=== PATIENT | female | born 1990 | race Hispanic/Latino ===

== ENCOUNTER 2018-05-26 09:00 | Inpatient (IN) | payer OTHER ==
[2018-05-26] MEDS ORDERED: SUBLIMAZE IV PRN (10:30)
[2018-05-26] MEDS ORDERED: XYLOCAINE 2% INFILTRATI NR (10:30)
--- NOTE | 2018-05-26 10:35 | History and Physical Report ---
History of Present Illness Date of examination: 05/26/18 Date of admission: 05/26/18 09:00 Chief complaint: Scheduled for induction of labor History of present illness: Pt is 28 year old female JILLIAN 05/19/18 at 41w0d who presents for induction of labor. She reports irregular contractions, and denies vaginal bleeding and leakage of fluid. She has had limited care at [facility] since 32 wks complicated by third trimester entry to care, Hepatitis C, H/o oxycodone use, genital herpes without lesion or prodrome, trichomonas treated on April 14, 2018. She is GBS positive- Clindamycin resistant. 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 History: herpes, trichomonas (treated 04/14/18 ) Family/Genetic History: hypertension Social history: smoking, IV drug use (former ), other (h/o oxycodone dependence ) - Obstetrical History Expected Date of Delivery: 05/19/18 Actual Gestation: 41 Week(s) 0 Day(s) : 6 Para: 3 Hx # Term Pregnancies: 3 Number of Pregnancies: 0 Spontaneous Abortions: 0 Induced : 2 Number of Living Children: 3 Medications and Allergies Allergies Allergy/AdvReac Type Severity Reaction Status Date / Time Penicillins Allergy Unknown Verified 07/10/14 11:45 doxycycline AdvReac Vomiting Verified 07/10/14 11:45 ketorolac tromethamine AdvReac Vomiting Verified 07/10/14 11:45 [From Toradol] tramadol AdvReac Vomiting Verified 07/10/14 11:45 Home Medications Medication Instructions Recorded Confirmed Last Taken Type Acetaminophen/Codeine 1 tab PO Q6H PRN #15 tab 07/10/14 Unknown Rx [Acetaminophen-Codeine #3 TAB] Clindamycin [Clindamycin CAP] 300 mg PO Q8H #30 cap 07/10/14 Unknown Rx Active Meds: Active Medications Butorphanol Tartrate (Stadol) 2 mg IV Q2H PRN PRN Reason: Pain , Severe (7-10) Ephedrine Sulfate (Ephedrine Sulfate) 10 mg IV Q2M PRN PRN Reason: Hypotension Fentanyl (Sublimaze) 100 mcg IV Q2H PRN PRN Reason: Labor Pain Lactated Ringer's (Lactated Ringers) 1,000 mls @ 125 mls/hr IV DIRECT ИРИНА Oxytocin/Sodium Chloride (Pitocin/Ns 20 Unit/1000ml Drip) 20 units in 1,000 mls @ 125 mls/hr IV DIRECT ИРИНА Oxytocin/Sodium Chloride (Pitocin/Ns 30 Unit/500ml) 30 units in 500 mls @ 4 mls /hr IV TITR ИРИНА; Protocol Vancomycin HCl (Vancomycin/Ns 1 Gm/250 Ml) 1 gm in 250 mls @ 167.007 mls/hr IV Q12H ИРИНА; Protocol Lidocaine (Xylocaine 2%) 20 ml INFILTRATI ONCE ONE Stop: 05/26/18 10:15 Mineral Oil (Mineral Oil) 30 ml PO QHS PRN PRN Reason: Constipation Naloxone HCl (Narcan 0.4 Mg/1 Ml) 0.1 mg IV Q2MIN PRN PRN Reason: Res Rate </= 8 or 02 SAT < 92% Ondansetron HCl (Zofran) 4 mg IV Q8H PRN PRN Reason: Nausea And Vomiting Terbutaline Sulfate (Brethine) 0.25 mg SUB-Q ONCE PRN PRN Reason: Hyperstimulation/Hypertonicity Terbutaline Sulfate (Brethine) 0.25 mg IVP ONCE PRN PRN Reason: Hyperstimulation/Hypertonicity - Vital Signs Vital signs: Vital Signs Pulse BP 90 135/82 05/26/18 09:41 05/26/18 09:41 Temp Pulse Resp BP Pulse Ox 98.1 F 90 16 135/82 05/26/18 10:16 05/26/18 09:41 05/26/18 10:16 05/26/18 09:41 - Physical Exam Abdomen: Positive: soft (gravid ) Genitourinary (Female): Positive: normal external genitalia Uterus: Positive: enlarged (gravid ) Extremities: Positive: normal - Obstetrical FHR: auscultation normal Uterine Contraction Monitor Mode: External Cervical Dilatation: 2 Cervical Effacement Percentage: 50 station: -2 Uterine Contraction Pattern: Irregular Uterine Tone Measurement Phase: Resting Uterine Contraction Intensity: Mild Results All other labs normal. Assessment and Plan A: IUP at 41w0d Hepatitis C Genital Herpes without lesion or prodrome Limited care (three visits) Degenerative Disc Disease H/o narcotic dependence GBS positive, Penicillin allergy, resistant to Clindamycin P: Admit to labor and delivery Pitocin induction Vancomycin 1g q 12 hrs for GBS prophylaxis
[2018-05-26] MEDS ORDERED: VANCOMYCIN/NS 1 GM/250 ML 1 GM/250 ML BAG IV SCH (11:00)
[2018-05-26] MEDS ORDERED: LACTATED RINGERS 1,000 ML IV SCH (11:00)
[2018-05-26] MEDS ORDERED: PITOCin/NS 30 UNIT/500ML 30 UNITS/500 ML BAG IV SCH (11:00)
[2018-05-26] MEDS ORDERED: STADOL IV PRN (11:00)
[2018-05-26] MEDS ORDERED: PITOCin/NS 20 UNIT/1000ML DRIP 20 UNITS/1,000 ML BAG IV SCH ×2 (11:00→22:00)
[2018-05-26] MEDS ORDERED: BRETHINE SUB-Q PRN (11:00)
[2018-05-26] MEDS ORDERED: ZOFRAN IV PRN ×2 (11:00→21:11)
[2018-05-26] MEDS ORDERED: NARCAN 0.4 MG/1 ML IV PRN (11:00)
[2018-05-26] MEDS ORDERED: BRETHINE IVP PRN (11:00)
[2018-05-26] MEDS ORDERED: MINERAL OIL PO PRN (11:00)
[2018-05-26 12:37] LABS: Hematocrit 32.1 % (30.3-42.9); Hemoglobin 11.5 gm/dl (10.1-14.3); Mean Corpuscular HGB Conc 36 % (30-34); Mean Corpuscular Hemoglobin 30 pg (28-32); Mean Corpuscular Volume 85 fl (79-97); Platelet Count 284 K/mm3 (140-440); Red Blood Count 3.78 M/mm3 (3.65-5.03); Red Cell Distribution Width 14.2 % (13.2-15.2)
[2018-05-26] MEDS ORDERED: NARCAN 2 MG/2 ML IV PRN (14:42)
--- NOTE | 2018-05-26 14:42 | Anesthesia Consultation ---
Anesthesia Consult and Med Hx Date of service: 05/26/18 - Airway Anesthetic Teeth Evaluation: Good ROM Head & Neck: Adequate Mental/Hyoid Distance: Adequate Mallampati Class: Class II Intubation Access Assessment: Probably Good - Pre-Operative Health Status ASA Pre-Surgery Classification: ASA2 Proposed Anesthetic Plan: Epidural, Spinal - Pulmonary Hx Smoking: Yes Hx Asthma: No COPD: No Hx Pneumonia: No - Cardiovascular System Hx Hypertension: Yes - Central Nervous System Hx Seizures: No Hx Psychiatric Problems: Yes (depression) - Endocrine Hx Renal Disease: No Hx End Stage Renal Disease: No Hx Hypothyroidism: No Hx Hyperthyroidism: No - Hematic Hx Anemia: No Hx Sickle Cell Disease: No - Other Systems Hx Alcohol Use: No
[2018-05-26] MEDS ORDERED: fentaNYL-BUPIV 2 MCG/ML-0.125% 200 MCG/100 ML BAG EPIDURAL SCH (15:00)
[2018-05-26] MEDS ORDERED: XYLOCAINE MPF 2% ONE (20:39)
[2018-05-26] MEDS ORDERED: CYTOTEC ONE (20:53)
[2018-05-26] MEDS ORDERED: TORADOL IV PRN (21:11)
[2018-05-26] MEDS ORDERED: PHENERGAN PR PRN (21:11)
[2018-05-26] MEDS ORDERED: NORCO 5/325 PO PRN (21:11)
[2018-05-26] MEDS ORDERED: LANSINOH TP PRN (21:11)
[2018-05-26] MEDS ORDERED: MILK OF MAGNESIA PO PRN (21:11)
[2018-05-26] MEDS ORDERED: DULCOLAX PR PRN (21:11)
[2018-05-26] MEDS ORDERED: TUCKS PAD TP PRN (21:11)
[2018-05-26] MEDS ORDERED: BENADRYL PO PRN (21:11)
[2018-05-26] MEDS ORDERED: TYLENOL PO PRN (21:11)
[2018-05-26] MEDS ORDERED: PHENERGAN PO PRN (21:11)
--- NOTE | 2018-05-26 21:25 | Procedure Note ---
OB Delivery Note - Delivery Date of Delivery: 05/26/18 Surgeon: BHUMIKA DELGADILLO Estimated blood loss: other (350cc) - Vaginal Delivery presentation: vertex Delivery position: OA Intrapartum events: meconium Delivery induction: cervidil Delivery monitor: external FHT, external uterine Route of delivery: Delivery placenta: spontaneous Delivery cord: nuchal cord, 2 umbilical vessels Episiotomy: none Delivery laceration: other (periurethral on the right ) Delivery repair: vicryl Delivery comments: Patient was noted to be c/c/ +1 and commenced to pushing a viable male infant at 2047. The baby head delivered and nuchal cord was reduced and shoulders easily delivered. The cord was clamped and cut and placed on mom chest at 2053. Awaiting Peds in room and given to Peds for evaluation. The Apgars 8 and 8 with a weight 3495=7 pounds 11oz. EBL 350cc. Periurethral lac repaired with 2-0 vicryl. Excellent hemostasis. Patient and baby bonding - Infant A at 1 minute: 8 at 5 minutes: 8 Infant Gender: Male
[2018-05-26] MEDS ORDERED: MOTRIN PO SCH (22:00)
[2018-05-26] MEDS ORDERED: SODIUM CHLORIDE FLUSH SYRINGE 10 ML IV NR (22:00)
[2018-05-27] MEDS: PERCOCET 5/325 PO PRN ×4 (03:41→21:15)
--- NOTE | 2018-05-27 08:56 | Progress Note ---
Assessment and Plan A: Stable PP Day 1 Drug Abuse P: D/c home per pts request Subjective - Subjective Date of service: 05/27/18 Patient reports: appetite normal, voiding normally, pain well controlled, ambulating normally, other (c/o back pain and afterbirth pain) [place]: doing well Objective - Vital Signs Latest vital signs: Vital Signs Temp Pulse Resp BP BP Pulse Ox 05/27/18 03:40 98.9 F 78 18 131/80 05/26/18 22:33 98.6 F 81 20 129/72 97 05/26/18 22:15 98.1 F 16 05/26/18 21:57 69 136/69 05/26/18 21:42 78 108/71 05/26/18 21:27 78 131/77 05/26/18 21:12 100 H 124/70 05/26/18 20:44 87 150/91 05/26/18 20:34 104 H 130/100 05/26/18 19:57 90 138/90 05/26/18 19:41 87 127/69 05/26/18 19:27 64 122/62 05/26/18 19:15 97.8 F 18 05/26/18 19:12 66 121/57 05/26/18 18:57 76 121/56 05/26/18 18:41 83 127/71 05/26/18 18:30 98.1 F 05/26/18 18:28 94 H 127/73 05/26/18 18:11 102 H 124/73 05/26/18 17:57 82 132/80 05/26/18 17:43 69 115/58 05/26/18 17:27 88 115/58 05/26/18 17:13 109 H 128/77 05/26/18 16:58 97 H 142/81 05/26/18 16:42 96 H 142/80 05/26/18 16:27 75 124/69 05/26/18 16:13 70 124/74 05/26/18 16:00 98.5 F 05/26/18 15:57 69 127/76 05/26/18 15:48 85 97 05/26/18 15:42 74 97 05/26/18 15:41 80 136/79 05/26/18 15:38 72 99 05/26/18 15:32 69 100 05/26/18 15:28 92 H 99 05/26/18 15:26 82 133/71 05/26/18 15:23 71 100 05/26/18 15:18 69 99 05/26/18 15:13 71 131/68 98 05/26/18 15:08 77 98 05/26/18 15:03 87 97 05/26/18 15:02 82 137/63 05/26/18 15:01 69 83 L 05/26/18 14:58 91 H 97 05/26/18 14:57 83 133/84 05/26/18 14:55 92 H 92 05/26/18 14:53 83 97 05/26/18 14:52 83 132/81 05/26/18 14:48 91 H 98 05/26/18 14:43 96 05/26/18 13:00 98.4 F 05/26/18 11:24 90 116/65 05/26/18 11:00 98.4 F 05/26/18 10:16 98.1 F 16 05/26/18 09:41 90 135/82 Intake and Output 05/26/18 05/27/18 05/27/18 22:59 06:59 14:59 Output Total 1000 800 Balance -1000 -800 Output: Urine 1000 800 Indwelling Catheter 1000 Void 800 Other: Total, Output Amount 1000 600 # Voids Void 1 Estimated Blood Loss 350 - Exam Breasts: Present: deferred Abdomen: Present: normal appearance, soft. Absent: distention, tenderness Uterus: Present: normal, firm, fundal height below umbilicus Extremities: Present: normal - Labs Labs: Abnormal lab results 05/26/18 Range/Units 11:39 MCHC 36 H (30-34) %
--- NOTE | 2018-05-27 09:01 | Discharge Summary ---
Providers - Providers Date of Admission: 05/26/18 09:00 Date of discharge: 05/27/18 Attending physician: BHUMIKA DELGADILLO MD Primary care physician: BHUMIKA DELGADILLO MD Hospitalization Reason for admission: induction of labor, IUP at term Delivery: Episiotomy: none Laceration: none Other procedures: none complications: none Discharge diagnosis: IUP at term delivered baby: male Condition at discharge: Good Disposition: DC-01 TO HOME OR SELFCARE Plan - Discharge Medications Prescriptions: Ferrous Sulfate 325 mg PO BID #60 tablet. Ibuprofen [Motrin] 600 mg PO Q8H PRN #30 tablet PRN Reason: Pain oxyCODONE /ACETAMINOPHEN [Percocet 5/325] 1 tab PO Q6HR PRN #30 tablet PRN Reason: Pain - Provider Discharge Summary Activity: routine, no sex for 6 weeks, no heavy lifting 4 weeks, no strenuous exercise Diet: routine Instructions: routine Additional instructions: [] Smoking cessation referral if applicable(refer to patient education folder for contact #) [] Refer to [facility] Booklet Call your doctor immediately for: * Fever > 100.5 * Heavy vaginal bleeding ( >1 pad per hour) * Severe persistent headache * Shortness of breath * Reddened, hot, painful area to leg or breast * Drainage or odor from incision. * Keep incision clean and dry at all times and follow doctor's instructions regarding bathing/showering - Follow up plan Follow up: BHUMIKA DELGADILLO MD [Primary Care Provider] - (Call office to schedule infant circumcision)
[2018-05-27] MEDS ORDERED: PRENATAL VITAMIN PO SCH (10:00)
[2018-05-27] MEDS: COLACE PO SCH ×2 (10:00→21:15)
[2018-05-27 10:11] LABS: Hematocrit 31.7 % (30.3-42.9); Hemoglobin 10.7 gm/dl (10.1-14.3)
[2018-05-27] MEDS ORDERED: M-M-R II VACCINE SUB-Q ONE (21:11)
[2018-05-27] MEDS ORDERED: BOOSTRIX IM ONE (21:11)
[2018-05-28] MEDS: PERCOCET 5/325 PO PRN (04:29)
[2018-05-28 09:28] VITALS: BP 119/72
== END 2018-05-28 10:15 | disposition home or self-care (01) | DRG 775 ==
LOC: LD 09:00 → OB 22:59
PROVIDERS: ADMIT Obstetrics & Gynecology; ATTEND Obstetrics & Gynecology
PROC: 10E0XZZ Delivery of Products of Conception, External Approach (ICD-10-PCS; principal; 2018-05-26)
PROC: 0UQMXZZ Repair Vulva, External Approach (ICD-10-PCS; 2018-05-26)
PROC: 3E0P7VZ Introduction of Hormone into Female Reproductive, Via Natural or Artificial Opening (ICD-10-PCS; 2018-05-26)
DX: O99.824 Streptococcus B carrier state complicating childbirth (principal); O77.0 Labor and delivery complicated by meconium in amniotic fluid; O99.324 Drug use complicating childbirth; O71.82 Other specified trauma to perineum and vulva; O69.81X0 Labor and delivery complicated by cord around neck, without compression, not applicable or unspecified; Z3A.41 41 weeks gestation of pregnancy; Z37.0 Single live birth
CPT/HCPCS: 36415; 85014; 85018; 85027; 86592; 86850; 86900; 86901; J0595; J2590; J3010; J3370; J7120

== ENCOUNTER 2019-03-11 16:49 | Outpatient (CLI) | payer OTHER ==
[2019-03-11 17:27] VITALS: BP 114/57
[2019-03-11 17:58] LABS: Bilirubin,Urine NEG (Negative); Blood,Urine NEG (Negative); Color,Urine Yellow (Yellow)
[2019-03-11] MEDS ORDERED: LACTATED RINGERS 500 ML IV ONE (18:27)
== END 2019-03-11 19:19 | disposition home or self-care (01) ==
LOC: TRG 16:49
PROVIDERS: ATTEND Obstetrics & Gynecology
DX: O47.02 False labor before 37 completed weeks of gestation, second trimester (principal); Z3A.20 20 weeks gestation of pregnancy
CPT/HCPCS: 81001; 87086

== ENCOUNTER 2019-03-14 13:47 | Inpatient (IN) | payer OTHER ==
[2019-03-14] MEDS ORDERED: LACTATED RINGERS 1,000 ML ONE (14:19)
[2019-03-14] MEDS ORDERED: ZOFRAN IV PRN (14:37)
[2019-03-14] MEDS ORDERED: COLACE PO PRN (14:37)
--- NOTE | 2019-03-14 14:45 | History and Physical Report ---
History of Present Illness Date of examination: 03/14/19 Chief complaint: fever, skin lesions, sent from clinic History of present illness: Pt is a 28 year old female JILLIAN 07/26/19 at 20w6d who presents from the office with body aches, subjective fever, and ulcerated lesions on arms and legs. She denies obstetric complaints. She reports being in her usual state of health until about 1 week ago when she began to feel ill with acceleration of her symptoms over the last three days. She was recently treated for a UTI. She has had care at [facility] since 11 wks complicated by hepatitis C, genital herpes, trichomonas (with pt non-compliance with medic ation), illicit drug abuse evidenced by positive drug screen, chronic opioid use secondary to chronic back pain, tobacco use and GBS positive status. 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: hepatitis C, herpes, trichomonas (non-compliant with treatment ) Family/Genetic History: hypertension Social history: smoking, other (Child at 6 wks due to SIDS in 2018; illicit drug use ) - Obstetrical History Expected Date of Delivery: 07/26/19 Actual Gestation: 21 Week(s) 0 Day(s) : 7 Para: 4 Hx # Term Pregnancies: 4 Number of Pregnancies: 0 Spontaneous Abortions: 0 Induced : 2 Number of Living Children: 3 (one child of SIDS at 6 wks old) Medications and Allergies Allergies Allergy/AdvReac Type Severity Reaction Status Date / Time Penicillins Allergy Unknown Verified 07/10/14 11:45 doxycycline AdvReac Vomiting Verified 07/10/14 11:45 ketorolac tromethamine AdvReac Vomiting Verified 07/10/14 11:45 [From Toradol] tramadol AdvReac Vomiting Verified 07/10/14 11:45 Home Medications Medication Instructions Recorded Confirmed Last Taken Type Acetaminophen/Codeine 1 tab PO Q6H PRN #15 tab 07/10/14 Unknown Rx [Acetaminophen-Codeine #3 TAB] Clindamycin [Clindamycin CAP] 300 mg PO Q8H #30 cap 07/10/14 Unknown Rx Ferrous Sulfate 325 mg PO BID #60 tablet. 05/26/18 Unknown Rx Ibuprofen [Motrin] 600 mg PO Q8H PRN #30 tablet 05/26/18 Unknown Rx oxyCODONE /ACETAMINOPHEN [Percocet 1 tab PO Q6HR PRN #30 tablet 05/26/18 Unknown Rx 5/325] Nitrofurantoin [place]/M-Cryst 100 mg PO BID #14 capsule 03/11/19 Unknown Rx [Macrobid CAP] Active Meds: Active Medications Acetaminophen (Tylenol) 650 mg PO Q4H PRN PRN Reason: Pain MILD(1-3)/Fever >100.5/QUEEN Docusate Sodium (Colace) 100 mg PO Q12H PRN PRN Reason: Constipation Lactated Ringer's (Lactated Ringers) 1,000 mls @ 150 mls/hr IV DIRECT ИРИНА Lactated Ringer's (Lactated Ringers) 500 mls @ 999 mls/hr IV BOLUS ONE Stop: 03/14/19 15:38 Lactated Ringer's (Lactated Ringers) 1,000 mls @ 150 mls/hr IV DIRECT ИРИНА Clindamycin HCl (Cleocin 900 Mg/50 Ml) 900 mg in 50 mls @ 100 mls/hr IV Q8HR ИРИНА; Protocol Multivitamins/Iron/Calcium ( Vitamin) 1 each PO QDAY ИРИНА Ondansetron HCl (Zofran) 4 mg IV Q6H PRN PRN Reason: Nausea And Vomiting Review of Systems All systems: negative Constitutional: fatigue, weakness, other (body aches ) - Vital Signs Vital signs: Vital Signs Pulse Pulse Ox 132 H 100 03/14/19 13:53 03/14/19 13:53 Temp Pulse Resp BP Pulse Ox 102.7 F H 131 H 36 H 121/67 94 03/14/19 14:10 03/14/19 14:43 03/14/19 14:10 03/14/19 14:10 03/14/19 14:43 - Physical Exam Breasts: Positive: deferred Cardiovascular: Regular rate (tachycardic ) Lungs: Positive: Clear to auscultation Abdomen: Positive: soft (gravid ) Genitourinary (Female): Positive: normal external genitalia Uterus: Positive: enlarged (gravid ) Extremities: Positive: other (ulcerated, erythematous eruption on arms and legs ) - Obstetrical FHR: auscultation normal Uterine Contraction Monitor Mode: External Uterine Contraction Pattern: Absent Uterine Tone Measurement Phase: Resting Results Result Diagrams: 03/14/19 16:16 03/14/19 16:16 All other labs normal. Assessment and Plan A: IUP at 20w6d Febrile morbidity with body aches and ulcerated eruption on arms and legs Recent UTI diagnosis Hepatitis C Trichomonas with non-compliance with prescribed Flagyl Illicit drug use Chronic opioid use Tobacco use Degenerative Disc Disease Genital Herpes GBS positive P: Admit to antepartum service CBC, CMP, Urine drug screen, Urinalysis Infectious Disease Consult FHTs by doppler q shift Begin broad spectrum antibiotics per ID recommendations Closely monitor clinical status
[2019-03-14] MEDS ORDERED: CLEOCIN 900 MG/50 mL 900 MG/50 ML BAG IV SCH (15:00)
[2019-03-14] MEDS ORDERED: LACTATED RINGERS 1,000 ML IV SCH (15:00)
[2019-03-14] MEDS ORDERED: LACTATED RINGERS 500 ML IV ONE (15:08)
[2019-03-14] MEDS: TYLENOL PO PRN (16:17)
[2019-03-14 16:37] LABS: Hematocrit 26.4 % (30.3-42.9); Hemoglobin 9.3 gm/dl (10.1-14.3); Mean Corpuscular HGB Conc 35 % (30-34); Mean Corpuscular Volume 94 fl (79-97); Red Blood Count 2.82 M/mm3 (3.65-5.03); Red Cell Distribution Width 14.6 % (13.2-15.2)
[2019-03-14 17:04] LABS: Alanine Aminotransferase 13 units/L (7-56); Albumin 1.9 g/dL (3.9-5); BUN/Creatinine Ratio 11; Blood Urea Nitrogen 8 mg/dL (7-17); Calcium 7.7 mg/dL (8.4-10.2); Hemolysis Index 79
[2019-03-14 17:06] LABS: Platelet Count 127 K/mm3 (140-440)
[2019-03-14] MEDS: LACTATED RINGERS 1,000 ML IV SCH (17:46)
[2019-03-14] MEDS: AZACTAM/NS 1 GM/50 ML 1 GM/50 ML VIAL IV SCH (18:20)
[2019-03-14 18:32] LABS: Band Neutrophils # (Manual) 3.4 K/mm3; Basophils % (Manual) 0 % (0.0-1.8); Eosinophils % (Manual) 0 % (0.0-4.3); Total Cells Counted 100
[2019-03-14 18:37] LABS: Anisocytosis 1+; Hypochromasia 1+; Ovalocytes Few
[2019-03-14 18:38] LABS: Platelet Estimate Consistent w Auto; Poikilocytosis Few
[2019-03-14 19:10] LABS: Bacteria,Urine 1+ /HPF (Negative); Bilirubin,Urine NEG (Negative); Blood,Urine SM (Negative); Color,Urine Yellow (Yellow); Urobilinogen,Urine < 2.0 mg/dL (<2.0)
[2019-03-14 19:12] LABS: Benzodiazepines Screen,Urine PRESUMPTIVE NEGATIVE; Cannabinoid Screen,Urine PRESUMPTIVE NEGATIVE; Cocaine Screen,Urine PRESUMPTIVE NEGATIVE; Methadone Screen,Urine PRESUMPTIVE NEGATIVE; Opiate Screen,Urine PRESUMPTIVE NEGATIVE
[2019-03-14] MEDS: VANCOMYCIN/NS 1 GM/250 ML 1 GM/250 ML BAG IV SCH (19:18)
[2019-03-14] MEDS: ROXICODONE PO PRN (19:20)
[2019-03-14 19:27] LABS: Amphetamine Screen,Urine PRESUMPTIVE POSITIVE
[2019-03-15] MEDS: ROXICODONE PO PRN ×4 (03:20→22:53)
[2019-03-15] MEDS: VANCOMYCIN/NS 1 GM/250 ML 1 GM/250 ML BAG IV SCH ×3 (03:26→22:32)
[2019-03-15] MEDS: AZACTAM/NS 1 GM/50 ML 1 GM/50 ML VIAL IV SCH ×3 (03:41→21:39)
[2019-03-15] MEDS: LACTATED RINGERS 1,000 ML IV SCH ×2 (03:42→17:13)
--- NOTE | 2019-03-15 07:59 | Progress Note ---
Assessment and Plan A: IUP at 21w0d Febrile morbidity with body aches and ulcerated eruption on arms and legs Recent UTI diagnosis Hepatitis C Trichomonas with non-compliance with prescribed Flagyl Illicit drug use Chronic opioid use Tobacco use Degenerative Disc Disease Genital Herpes GBS positive P: Consider transfer off of Labor and Delivery unit given unknown etiology of skin eruption Internal Medicine consult Subjective - Subjective Date of service: 03/15/19 Principal diagnosis: IUP at 21wks, febrile morbidity, Hepatitis, Rash Interval history: Pt with no change in her complaints since yesterday. Continuing to complain of pain of head, ribs, arms, back and legs. Denies obstetric complaints. Patient reports: new complaints (per HPI ) Objective - Vital Signs Vital Signs: Vital Signs - 12hr 03/14/19 03/14/19 03/14/19 20:20 20:39 22:13 Pulse Rate 121 H 122 H Respiratory 18 Rate Blood Pressure 106/50 106/56 03/14/19 03/14/19 03/15/19 22:40 23:39 00:39 Pulse Rate 120 H 118 H 123 H Respiratory Rate Blood Pressure 96/47 120/63 111/54 03/15/19 03/15/19 03/15/19 01:39 02:40 03:20 Pulse Rate 121 H 123 H Respiratory 19 Rate Blood Pressure 114/53 119/56 03/15/19 03/15/19 03/15/19 04:39 05:40 06:39 Pulse Rate 129 H 117 H 118 H Respiratory Rate Blood Pressure 119/56 98/50 108/52 03/15/19 07:39 Pulse Rate 122 H Respiratory Rate Blood Pressure 108/54 - Exam Breasts: deferred Cardiovascular: Regular rate (tachuycardic ) Lungs: Clear to auscultation Abdomen: Present: soft (gravid ) Uterus: Present: normal (gravid ) FHR: auscultation normal Uterine Contraction Pattern: Absent - Labs Labs: Abnormal Labs 03/14/19 03/14/19 03/14/19 16:16 16:16 18:40 RBC 2.82 L Hgb 9.3 L Hct 26.4 L MCH 33 H MCHC 35 H Plt Count 127 L Lymphocytes % (Manual) 3.0 L Lymphocytes # (Manual) 0.3 L Sodium 128 L Chloride 95.6 L Carbon Dioxide 18 L Calcium 7.7 L Total Protein 5.0 L Albumin 1.9 L Urine WBC (Auto) 24.0 H Laboratory Results - last 24 hr 03/14/19 03/14/19 03/14/19 16:16 16:16 16:16 WBC 9.7 RBC 2.82 L Hgb 9.3 L Hct 26.4 L MCV 94 MCH 33 H MCHC 35 H RDW 14.6 Plt Count 127 L Add Manual Diff Complete Total Counted 100 Seg Neutrophils % Dials Supervisor Seg Neuts % (Manual) 59.0 Band Neutrophils % 35.0 Lymphocytes % (Manual) 3.0 L Reactive Lymphs % (Man) 0 Monocytes % (Manual) 3.0 Eosinophils % (Manual) 0 Basophils % (Manual) 0 Metamyelocytes % 0 Myelocytes % 0 Promyelocytes % 0 Blast Cells % 0 Nucleated RBC % Not Reportable Seg Neutrophils # Man 5.7 Band Neutrophils # 3.4 Lymphocytes # (Manual) 0.3 L Abs React Lymphs (Man) 0.0 Monocytes # (Manual) 0.3 Eosinophils # (Manual) 0.0 Basophils # (Manual) 0.0 Metamyelocytes # 0.0 Myelocytes # 0.0 Promyelocytes # 0.0 Blast Cells # 0.0 WBC Morphology Not Reportable Hypersegmented Neuts Not Reportable Hyposegmented Neuts Not Reportable Hypogranular Neuts Not Reportable Smudge Cells Not Reportable Toxic Granulation Not Reportable Toxic Vacuolation Not Reportable Dohle Bodies Not Reportable Pelger-Huet Anomaly Not Reportable Waylon Rods Not Reportable Platelet Estimate Consistent w auto Clumped Platelets Not Reportable Plt Clumps, EDTA Not Reportable Large Platelets Not Reportable Giant Platelets Not Reportable Platelet Satelliting Not Reportable Plt Morphology Comment Not Reportable RBC Morphology Not Reportable Dimorphic RBCs Not Reportable Polychromasia Not Reportable Hypochromasia 1+ Poikilocytosis Few Anisocytosis 1+ Microcytosis Not Reportable Macrocytosis Not Reportable Spherocytes Not Reportable Pappenheimer Bodies Not Reportable Sickle Cells Not Reportable Target Cells Not Reportable Tear Drop Cells Not Reportable Ovalocytes Few Helmet Cells Not Reportable [place] Bodies Not Reportable Cool Rings Not Reportable Spiro Cells Not Reportable Bite Cells Not Reportable Crenated Cell Not Reportable Elliptocytes Not Reportable Acanthocytes (Spur) Not Reportable Rouleaux Not Reportable Hemoglobin C Crystals Not Reportable Schistocytes Not Reportable Malaria parasites Not Reportable Robert Bodies Not Reportable Hem Pathologist Commnt No Sodium Potassium Chloride Carbon Dioxide Anion Gap BUN Creatinine Estimated GFR BUN/Creatinine Ratio Glucose Calcium Total Bilirubin AST ALT Alkaline Phosphatase Total Protein Albumin Albumin/Globulin Ratio Urine Color Urine Turbidity Urine pH Ur Specific [place] Urine Protein Urine Glucose (UA) Urine Ketones Urine Blood Urine Nitrite Urine Bilirubin Urine Urobilinogen Ur Leukocyte Esterase Urine WBC (Auto) Urine RBC (Auto) U Epithel Cells (Auto) Urine Bacteria (Auto) Urine Yeast (Budding) Urine Opiates Screen Urine Methadone Screen Ur Barbiturates Screen Ur Phencyclidine Scrn Ur Amphetamines Screen U Benzodiazepines Scrn Urine Cocaine Screen U Marijuana (THC) Screen Drugs of Abuse Note HIV 1&2 Antibody Rapid Non react HIV P24 Antigen Non react Blood Type A POSITIVE Antibody Screen Negative 03/14/19 03/14/19 03/14/19 16:16 18:40 18:40 WBC RBC Hgb Hct MCV MCH MCHC RDW Plt Count Add Manual Diff Total Counted Seg Neutrophils % Seg Neuts % (Manual) Band Neutrophils % Lymphocytes % (Manual) Reactive Lymphs % (Man) Monocytes % (Manual) Eosinophils % (Manual) Basophils % (Manual) Metamyelocytes % Myelocytes % Promyelocytes % Blast Cells % Nucleated RBC % Seg Neutrophils # Man Band Neutrophils # Lymphocytes # (Manual) Abs React Lymphs (Man) Monocytes # (Manual) Eosinophils # (Manual) Basophils # (Manual) Metamyelocytes # Myelocytes # Promyelocytes # Blast Cells # WBC Morphology Hypersegmented Neuts Hyposegmented Neuts Hypogranular Neuts Smudge Cells Toxic Granulation Toxic Vacuolation Dohle Bodies Pelger-Huet Anomaly Waylon Rods Platelet Estimate Clumped Platelets Plt Clumps, EDTA Large Platelets Giant Platelets Platelet Satelliting Plt Morphology Comment RBC Morphology Dimorphic RBCs Polychromasia Hypochromasia Poikilocytosis Anisocytosis Microcytosis Macrocytosis Spherocytes Pappenheimer Bodies Sickle Cells Target Cells Tear Drop Cells Ovalocytes Helmet Cells [place] Bodies Cool Rings Irvin Cells Bite Cells Crenated Cell Elliptocytes Acanthocytes (Spur) Rouleaux Hemoglobin C Crystals Schistocytes Malaria parasites Robert Bodies Hem Pathologist Commnt Sodium 128 L Potassium 4.0 Chloride 95.6 L Carbon Dioxide 18 L Anion Gap 18 BUN 8 Creatinine 0.7 Estimated GFR > 60 BUN/Creatinine Ratio 11 Glucose 88 Calcium 7.7 L Total Bilirubin 0.20 AST 22 ALT 13 Alkaline Phosphatase 83 Total Protein 5.0 L Albumin 1.9 L Albumin/Globulin Ratio 0.6 Urine Color Yellow Urine Turbidity Slightly-cloudy Urine pH 6.0 Ur Specific [place] 1.008 Urine Protein 30 mg/dl Urine Glucose (UA) Neg Urine Ketones Neg Urine Blood Sm Urine Nitrite Neg Urine Bilirubin Neg Urine Urobilinogen < 2.0 Ur Leukocyte Esterase Lg Urine WBC (Auto) 24.0 H Urine RBC (Auto) 28.0 U Epithel Cells (Auto) 3.0 Urine Bacteria (Auto) 1+ Urine Yeast (Budding) 1+ Urine Opiates Screen Presumptive negative Urine Methadone Screen Presumptive negative Ur Barbiturates Screen Presumptive negative Ur Phencyclidine Scrn Presumptive negative Ur Amphetamines Screen Presumptive positive U Benzodiazepines Scrn Presumptive negative Urine Cocaine Screen Presumptive negative U Marijuana (THC) Screen Presumptive negative Drugs of Abuse Note Disclamer HIV 1&2 Antibody Rapid HIV P24 Antigen Blood Type Antibody Screen
--- NOTE | 2019-03-15 11:41 | Consultation ---
History of Present Illness - Reason for Consult Consult date: 03/15/19 20 weeks preg, fever and skin lesions Requesting physician: AKHIL FELDMAN - History of Present Illness 28 y/o female previous IVDU (last time 2 years ago), HCV, genital herpes, trichomonas, chronic opioid use, chronic back pain, recent UTI, with 20w6d with a week history generalized malaise, body aches, subjective fever and multiple skin lesions on bilateral arms and legs. Patient reports lesions started as small nodules. Denies insect bites. Denies skin trauma. Denies recent IVDU. She reports she has ADD and takes Adderall and that is why her UDS was positive for amph. In the ED, temp 102.2, HR 132, R 20, BP 121/67. WBC 9.7. Hg 9.5. Plat 127. Bands 35%. Creat 0.7. Blood cultures 03/14/2019 no growth. UA wbc 24, large LE.HIV rapid negative. UDS + amphetamines Review of Systems: General: + fever, + chills, no malaise Cutaneous: +rash Head: no headaches or injury Eyes: no changes in vision, eye pain, double vision Ears: no ear pain, ear discharge, ringing or hearing loss Nose: no nose bleeding, stuffiness Mouth & throat: no bleeding gums, no horseness, no dental problems, or swollen glands Neck: no pain, node enlargement/lumps, tyroid enlargement or tenderness Respiratory: no cough, SOB, wheezing, sputum, hemoptysis, pleuritic chest pain Cardiovascular: no chest pain, leg edema, cyanosis, GRAHAM, orthopnea Musculoskeletal: +lower back pain + right ribs pain Gastrointestinal: no nausea, vomiting, no hematemesis, diarrhea, constipation, melena, bright red blood in stools, fecal incontinence, jaundice Genitourinary/Reproductive:no frequent urination, dysuria, hematuria, incontinence Neurogical: no seizures, no headaches, no weakness, no paresthesias, no loss of speech or vision; no memory loss, no vertigo, no tremors, no numbness Psychiatric: stable mood; no excessive anxiety, sadness or moodiness Past History Social history: smoking, other (Child at 6 wks due to SIDS in 2018; illicit drug use ) Medications and Allergies Allergies Allergy/AdvReac Type Severity Reaction Status Date / Time Penicillins Allergy Unknown Verified 07/10/14 11:45 doxycycline AdvReac Vomiting Verified 07/10/14 11:45 ketorolac tromethamine AdvReac Vomiting Verified 07/10/14 11:45 [From Toradol] tramadol AdvReac Vomiting Verified 07/10/14 11:45 Home Medications Medication Instructions Recorded Confirmed Last Taken Type Acetaminophen/Codeine 1 tab PO Q6H PRN #15 tab 07/10/14 Unknown Rx [Acetaminophen-Codeine #3 TAB] Clindamycin [Clindamycin CAP] 300 mg PO Q8H #30 cap 07/10/14 Unknown Rx Ferrous Sulfate 325 mg PO BID #60 tablet. 05/26/18 Unknown Rx Ibuprofen [Motrin] 600 mg PO Q8H PRN #30 tablet 05/26/18 Unknown Rx oxyCODONE /ACETAMINOPHEN [Percocet 1 tab PO Q6HR PRN #30 tablet 05/26/18 Unknown Rx 5/325] Nitrofurantoin [place]/M-Cryst 100 mg PO BID #14 capsule 03/11/19 Unknown Rx [Macrobid CAP] Active Meds: Active Medications Acetaminophen (Tylenol) 650 mg PO Q4H PRN PRN Reason: Pain MILD(1-3)/Fever >100.5/QUEEN Last Admin: 03/14/19 16:17 Dose: 650 mg Documented by: Docusate Sodium (Colace) 100 mg PO Q12H PRN PRN Reason: Constipation Lactated Ringer's (Lactated Ringers) 1,000 mls @ 150 mls/hr IV DIRECT ИРИНА Last Admin: 03/15/19 03:42 Dose: 150 mls/hr Documented by: Vancomycin HCl (Vancomycin/Ns 1 Gm/250 Ml) 1 gm in 250 mls @ 166.667 mls/hr IV Q12H ИРИНА; Protocol Last Admin: 03/15/19 08:55 Dose: 166.667 mls/hr Documented by: Aztreonam (Azactam/Ns 1 Gm/50 Ml) 1 gm in 50 mls @ 50 mls/hr IV Q8H ИРИНА Last Admin: 03/15/19 03:41 Dose: 50 mls/hr Documented by: Multivitamins/Iron/Calcium ( Vitamin) 1 each PO QDAY ИРИНА Ondansetron HCl (Zofran) 4 mg IV Q6H PRN PRN Reason: Nausea And Vomiting Oxycodone HCl (Roxicodone) 20 mg PO Q6H PRN PRN Reason: Pain, Moderate (4-6) Last Admin: 03/15/19 10:42 Dose: 20 mg Documented by: Physical Examination - Physical Exam Narrative exam: General appearance: Alert in NAD anxious Eyes: anicteric sclerae, moist conjunctivae; no lid-lag; PERRLA HENT: Atraumatic; oropharynx clear with moist mucous membranes and no mucosal ulcerations/no oral thrush; normal hard and soft palate. Normal external ears. Neck: Trachea midline; supple, no thyromegaly or lymphadenopathy Lungs: CTA clinton CV: RRR no murmur Abdomen: Soft, non-tender; uterus Extremities: no edema, cyanosis Skin: multiple small erythematous nodules and some small shallow ulcers over upper extremities and legs Psych: Appropriate affect, alert and oriented to person, place and time. Neuro: alert and oriented x 3. Moving all extermities - Constitutional Vitals: Vital Signs Temp Pulse Resp BP Pulse Ox 100.6 F H 125 H 20 104/51 99 03/15/19 10:08 03/15/19 10:40 03/15/19 10:42 03/15/19 10:40 03/14/19 15:53 Temperature -Last 24 Hours Temperature 100.6 F Temperature 100.5 F Temperature 98.2 F Temperature 100.5 F Temperature 102.7 F Results - Labs CBC & Chem 7: 03/14/19 16:16 03/14/19 16:16 Labs: Abnormal lab results 03/14/19 03/14/19 03/14/19 Range/Units 16:16 16:16 18:40 RBC 2.82 L (3.65-5.03) M/mm3 Hgb 9.3 L (10.1-14.3) gm/dl Hct 26.4 L (30.3-42.9) % MCH 33 H (28-32) pg MCHC 35 H (30-34) % Plt Count 127 L (140-440) K/mm3 Lymphocytes % (Manual) 3.0 L (13.4-35.0) % Lymphocytes # (Manual) 0.3 L (1.2-5.4) K/mm3 Sodium 128 L (137-145) mmol/L Chloride 95.6 L (98-107) mmol/L Carbon Dioxide 18 L (22-30) mmol/L Calcium 7.7 L (8.4-10.2) mg/dL Total Protein 5.0 L (6.3-8.2) g/dL Albumin 1.9 L (3.9-5) g/dL Urine WBC (Auto) 24.0 H (0.0-6.0) /HPF Assessment and Plan Cultures: Blood cultures 03/14/2019 no growth. Assessment: 28 y/o female previous IVDU (last time 2 years ago), HCV, genital herpes, trichomonas, chronic opioid use, chronic back pain, recent UTI, with 20w6d with a week history generalized malaise, body aches, subjective fever and multiple skin lesions on bilateral arms and legs: 1) SIRS v/s sepsis: present on admission with fever, tachycardia, bandemia. Unclear etiology ? concern of pustules and bacteremia ? Staph infection +/- UTI. 2) Multiple skin nodules ? pustules ? scratching v/s emboli phenomena 3) UTI: UA wbc 24, large LE. 4) Drug/tobacco abuse:UDS + amphetamines 5) HCV 6) Multiple drug allergies Recommendations: continue vancomycin for skin infection continue aztreonam for UTI f/u blood cultures and urine culture renal US if bacteremia obtain echo r/o endocarditis Will follow. Ruth Porter MD Infectious Diseases Lead Business Systems Analyst [facility] [phone]
[2019-03-15 12:02] LABS: BUN/Creatinine Ratio 10; Blood Urea Nitrogen 7 mg/dL (7-17); Calcium 7.7 mg/dL (8.4-10.2); Hemolysis Index 15
[2019-03-15] MEDS: PRENATAL VITAMIN PO SCH (17:14)
[2019-03-15] MEDS: TYLENOL PO PRN (21:36)
--- NOTE | 2019-03-15 21:46 | History and Physical Report ---
History of Present Illness Date of examination: 03/15/19 Date of admission: 03/14/19 16:42 Past History Social history: smoking, other (Child at 6 wks due to SIDS in 2018; illicit drug use ) Medications and Allergies Allergies Allergy/AdvReac Type Severity Reaction Status Date / Time Penicillins Allergy Unknown Verified 07/10/14 11:45 doxycycline AdvReac Vomiting Verified 07/10/14 11:45 ketorolac tromethamine AdvReac Vomiting Verified 07/10/14 11:45 [From Toradol] tramadol AdvReac Vomiting Verified 07/10/14 11:45 Home Medications Medication Instructions Recorded Confirmed Last Taken Type Acetaminophen/Codeine 1 tab PO Q6H PRN #15 tab 07/10/14 Unknown Rx [Acetaminophen-Codeine #3 TAB] Clindamycin [Clindamycin CAP] 300 mg PO Q8H #30 cap 07/10/14 Unknown Rx Ferrous Sulfate 325 mg PO BID #60 tablet. 05/26/18 Unknown Rx Ibuprofen [Motrin] 600 mg PO Q8H PRN #30 tablet 05/26/18 Unknown Rx oxyCODONE /ACETAMINOPHEN [Percocet 1 tab PO Q6HR PRN #30 tablet 05/26/18 Unknown Rx 5/325] Nitrofurantoin [place]/M-Cryst 100 mg PO BID #14 capsule 03/11/19 Unknown Rx [Macrobid CAP] Active Meds: Active Medications Acetaminophen (Tylenol) 650 mg PO Q4H PRN PRN Reason: Pain MILD(1-3)/Fever >100.5/QUEEN Last Admin: 03/15/19 21:36 Dose: 650 mg Documented by: Docusate Sodium (Colace) 100 mg PO Q12H PRN PRN Reason: Constipation Lactated Ringer's (Lactated Ringers) 1,000 mls @ 150 mls/hr IV DIRECT ИРИНА Last Admin: 03/15/19 17:13 Dose: 150 mls/hr Documented by: Vancomycin HCl (Vancomycin/Ns 1 Gm/250 Ml) 1 gm in 250 mls @ 166.667 mls/hr IV Q12H ИРИНА; Protocol Last Admin: 03/15/19 08:55 Dose: 166.667 mls/hr Documented by: Aztreonam (Azactam/Ns 1 Gm/50 Ml) 1 gm in 50 mls @ 50 mls/hr IV Q8H ИРИНА Last Admin: 03/15/19 21:39 Dose: 50 mls/hr Documented by: Multivitamins/Iron/Calcium ( Vitamin) 1 each PO QDAY ИРИНА Last Admin: 03/15/19 17:14 Dose: 1 each Documented by: Ondansetron HCl (Zofran) 4 mg IV Q6H PRN PRN Reason: Nausea And Vomiting Oxycodone HCl (Roxicodone) 20 mg PO Q6H PRN PRN Reason: Pain, Moderate (4-6) Last Admin: 03/15/19 17:14 Dose: 20 mg Documented by: Exam - Constitutional Vitals: Temp Pulse Resp BP Pulse Ox 97.8 F 120 H 18 110/59 93 03/15/19 16:04 03/15/19 16:04 03/15/19 21:36 03/15/19 16:04 03/15/19 16:04 Results - Labs CBC & Chem 7: 03/14/19 16:16 03/15/19 Unknown Labs: Laboratory Last Values WBC 9.7 K/mm3 (4.5-11.0) 03/14/19 16:16 RBC 2.82 M/mm3 (3.65-5.03) L 03/14/19 16:16 Hgb 9.3 gm/dl (10.1-14.3) L 03/14/19 16:16 Hct 26.4 % (30.3-42.9) L 03/14/19 16:16 MCV 94 fl (79-97) 03/14/19 16:16 MCH 33 pg (28-32) H 03/14/19 16:16 MCHC 35 % (30-34) H 03/14/19 16:16 RDW 14.6 % (13.2-15.2) 03/14/19 16:16 Plt Count 127 K/mm3 (140-440) L 03/14/19 16:16 Add Manual Diff Complete 03/14/19 16:16 Total Counted 100 03/14/19 16:16 Seg Neutrophils % Veterinary Milk Specialist 03/14/19 16:16 Seg Neuts % (Manual) 59.0 % (40.0-70.0) 03/14/19 16:16 35.0 % 03/14/19 16:16 3.0 % (13.4-35.0) L 03/14/19 16:16 Reactive Lymphs % (Man) 0 % 03/14/19 16:16 3.0 % (0.0-7.3) 03/14/19 16:16 0 % (0.0-4.3) 03/14/19 16:16 0 % (0.0-1.8) 03/14/19 16:16 0 % 03/14/19 16:16 0 % 03/14/19 16:16 0 % 03/14/19 16:16 0 % 03/14/19 16:16 Nucleated RBC % Not Reportable 03/14/19 16:16 Seg Neutrophils # Man 5.7 K/mm3 (1.8-7.7) 03/14/19 16:16 Band Neutrophils # 3.4 K/mm3 03/14/19 16:16 0.3 K/mm3 (1.2-5.4) L 03/14/19 16:16 Abs React Lymphs (Man) 0.0 K/mm3 03/14/19 16:16 0.3 K/mm3 (0.0-0.8) 03/14/19 16:16 0.0 K/mm3 (0.0-0.4) 03/14/19 16:16 0.0 K/mm3 (0.0-0.1) 03/14/19 16:16 0.0 K/mm3 03/14/19 16:16 0.0 K/mm3 03/14/19 16:16 0.0 K/mm3 03/14/19 16:16 Blast Cells # 0.0 K/mm3 03/14/19 16:16 WBC Morphology Not Reportable 03/14/19 16:16 Hypersegmented Neuts Not Reportable 03/14/19 16:16 Hyposegmented Neuts Not Reportable 03/14/19 16:16 Hypogranular Neuts Not Reportable 03/14/19 16:16 Not Reportable 03/14/19 16:16 Not Reportable 03/14/19 16:16 Not Reportable 03/14/19 16:16 Not Reportable 03/14/19 16:16 Not Reportable 03/14/19 16:16 Not Reportable 03/14/19 16:16 Consistent w auto 03/14/19 16:16 Not Reportable 03/14/19 16:16 Plt Clumps, EDTA Not Reportable 03/14/19 16:16 Not Reportable 03/14/19 16:16 Not Reportable 03/14/19 16:16 Not Reportable 03/14/19 16:16 Plt Morphology Comment Not Reportable 03/14/19 16:16 RBC Morphology Not Reportable 03/14/19 16:16 Dimorphic RBCs Not Reportable 03/14/19 16:16 Not Reportable 03/14/19 16:16 1+ 03/14/19 16:16 Few 03/14/19 16:16 1+ 03/14/19 16:16 Not Reportable 03/14/19 16:16 Not Reportable 03/14/19 16:16 Not Reportable 03/14/19 16:16 Not Reportable 03/14/19 16:16 Not Reportable 03/14/19 16:16 Not Reportable 03/14/19 16:16 Not Reportable 03/14/19 16:16 Few 03/14/19 16:16 Not Reportable 03/14/19 16:16 Not Reportable 03/14/19 16:16 Not Reportable 03/14/19 16:16 Not Reportable 03/14/19 16:16 Not Reportable 03/14/19 16:16 Not Reportable 03/14/19 16:16 Not Reportable 03/14/19 16:16 Acanthocytes (Spur) Not Reportable 03/14/19 16:16 Rouleaux Not Reportable 03/14/19 16:16 Not Reportable 03/14/19 16:16 Not Reportable 03/14/19 16:16 Not Reportable 03/14/19 16:16 Not Reportable 03/14/19 16:16 Hem Pathologist Commnt No 03/14/19 16:16 Sodium 130 mmol/L (137-145) L 03/15/19 Unknown Potassium 4.0 mmol/L (3.6-5.0) 03/15/19 Unknown Chloride 95.4 mmol/L (98-107) L 03/15/19 Unknown Carbon Dioxide 23 mmol/L (22-30) 03/15/19 Unknown 16 mmol/L 03/15/19 Unknown BUN 7 mg/dL (7-17) 03/15/19 Unknown 0.7 mg/dL (0.7-1.2) 03/15/19 Unknown Estimated GFR > 60 ml/min 03/15/19 Unknown 10 % 03/15/19 Unknown Glucose 117 mg/dL (65-100) H 03/15/19 Unknown Calcium 7.7 mg/dL (8.4-10.2) L 03/15/19 Unknown 0.20 mg/dL (0.1-1.2) 03/14/19 16:16 AST 22 units/L (5-40) 03/14/19 16:16 ALT 13 units/L (7-56) 03/14/19 16:16 83 units/L (35-129) 03/14/19 16:16 5.0 g/dL (6.3-8.2) L 03/14/19 16:16 1.9 g/dL (3.9-5) L 03/14/19 16:16 0.6 % 03/14/19 16:16 Yellow (Yellow) 03/14/19 18:40 Slightly-cloudy (Clear) 03/14/19 18:40 6.0 (5.0-7.0) 03/14/19 18:40 Ur Specific [place] 1.008 (1.003-1.030) 03/14/19 18:40 30 mg/dl mg/dL (Negative) 03/14/19 18:40 Neg mg/dL (Negative) 03/14/19 18:40 Neg mg/dL (Negative) 03/14/19 18:40 Sm (Negative) 03/14/19 18:40 Neg (Negative) 03/14/19 18:40 Neg (Negative) 03/14/19 18:40 < 2.0 mg/dL (<2.0) 03/14/19 18:40 Ur Leukocyte Esterase Lg (Negative) 03/14/19 18:40 24.0 /HPF (0.0-6.0) H 03/14/19 18:40 28.0 /HPF (0.0-6.0) 03/14/19 18:40 U Epithel Cells (Auto) 3.0 /HPF (0-13.0) 03/14/19 18:40 1+ /HPF (Negative) 03/14/19 18:40 1+ /HPF 03/14/19 18:40 Presumptive negative 03/14/19 18:40 Presumptive negative 03/14/19 18:40 Ur Barbiturates Screen Presumptive negative 03/14/19 18:40 Ur Phencyclidine Scrn Presumptive negative 03/14/19 18:40 Ur Amphetamines Screen Presumptive positive 03/14/19 18:40 U Benzodiazepines Scrn Presumptive negative 03/14/19 18:40 Presumptive negative 03/14/19 18:40 U Marijuana (THC) Screen Presumptive negative 03/14/19 18:40 Disclamer 03/14/19 18:40 RPR Nonreactive (Nonreactive) 03/14/19 16:16 HIV 1&2 Antibody Rapid Non react (Non React) 03/14/19 16:16 Non react (Non React) 03/14/19 16:16 Influenza A (Rapid) Negative (Negative) 03/14/19 10:10 Influenza B (Rapid) Negative (Negative) 03/14/19 10:10 Blood Type A POSITIVE 03/14/19 16:16 Antibody Screen Negative 03/14/19 16:16
[2019-03-15] MEDS ORDERED: SODIUM CHLORIDE FLUSH SYRINGE 10 ML IV PRN (21:49)
[2019-03-15] MEDS ORDERED: TYLENOL PO PRN (21:49)
[2019-03-15] MEDS ORDERED: ZOFRAN IV PRN (21:49)
[2019-03-15] MEDS: PEPCID PO SCH (22:32)
[2019-03-15] MEDS: NACL 0.9% 1000 ML 1,000 ML IV SCH (22:33)
[2019-03-15] MEDS: SODIUM CHLORIDE FLUSH SYRINGE 10 ML IV SCH (22:33)
[2019-03-16] MEDS: AZACTAM/NS 1 GM/50 ML 1 GM/50 ML VIAL IV SCH ×2 (01:07→08:46)
[2019-03-16] MEDS: ROXICODONE PO PRN ×3 (04:48→20:35)
[2019-03-16] MEDS: VANCOMYCIN/NS 1 GM/250 ML 1 GM/250 ML BAG IV SCH ×2 (05:59→17:48)
--- NOTE | 2019-03-16 07:29 | Consultation ---
History of Present Illness - Reason for Consult Consult date: 03/15/19 Medical management Requesting physician: AKHIL FELDMAN - History of Present Illness 28 y/o female previous IVDU (last time 2 years ago), HCV, genital herpes, trichomonas, chronic opioid use, chronic back pain, recent UTI, with 20w6d with a week history generalized malaise, body aches, subjective fever and multiple skin lesions on bilateral arms and legs. Patient reports lesions s tarted as small nodules. Denies insect bites. Denies skin trauma. Denies recent IVDU. Past History Past Medical History: hepatitis (Hep C), other (HSV/Chronic back pain) Past Surgical History: No surgical history Social history: smoking, other (Child at 6 wks due to SIDS in 2018; illicit drug use IVDU ) Family history: no significant family history Medications and Allergies Allergies Allergy/AdvReac Type Severity Reaction Status Date / Time Penicillins Allergy Unknown Verified 07/10/14 11:45 doxycycline AdvReac Vomiting Verified 07/10/14 11:45 ketorolac tromethamine AdvReac Vomiting Verified 07/10/14 11:45 [From Toradol] tramadol AdvReac Vomiting Verified 07/10/14 11:45 Home Medications Medication Instructions Recorded Confirmed Last Taken Type Acetaminophen/Codeine 1 tab PO Q6H PRN #15 tab 07/10/14 Unknown Rx [Acetaminophen-Codeine #3 TAB] Clindamycin [Clindamycin CAP] 300 mg PO Q8H #30 cap 07/10/14 Unknown Rx Ferrous Sulfate 325 mg PO BID #60 tablet. 05/26/18 Unknown Rx Ibuprofen [Motrin] 600 mg PO Q8H PRN #30 tablet 05/26/18 Unknown Rx oxyCODONE /ACETAMINOPHEN [Percocet 1 tab PO Q6HR PRN #30 tablet 05/26/18 Unknown Rx 5/325] Nitrofurantoin [place]/M-Cryst 100 mg PO BID #14 capsule 03/11/19 Unknown Rx [Macrobid CAP] Active Meds: Active Medications Acetaminophen (Tylenol) 650 mg PO Q4H PRN PRN Reason: Pain MILD(1-3)/Fever >100.5/QUEEN Last Admin: 03/15/19 21:36 Dose: 650 mg Documented by: Docusate Sodium (Colace) 100 mg PO Q12H PRN PRN Reason: Constipation Famotidine (Pepcid) 20 mg PO BID [facility] Last Admin: 03/15/19 22:32 Dose: 20 mg Documented by: Hydromorphone HCl (Dilaudid) 0.5 mg IV Q3H PRN PRN Reason: Pain , Severe (7-10) Vancomycin HCl (Vancomycin/Ns 1 Gm/250 Ml) 1 gm in 250 mls @ 166.667 mls/hr IV Q12H [facility]; Protocol Last Admin: 03/16/19 05:59 Dose: 166.667 mls/hr Documented by: Aztreonam (Azactam/Ns 1 Gm/50 Ml) 1 gm in 50 mls @ 50 mls/hr IV Q8H [facility] Last Admin: 03/16/19 01:07 Dose: Not Given Documented by: Sodium Chloride (Nacl 0.9% 1000 Ml) 1,000 mls @ 75 mls/hr IV DIRECT [facility] Last Admin: 03/15/19 22:33 Dose: 75 mls/hr Documented by: Multivitamins/Iron/Calcium ( Vitamin) 1 each PO QDAY [facility] Last Admin: 03/15/19 17:14 Dose: 1 each Documented by: Ondansetron HCl (Zofran) 4 mg IV Q6H PRN PRN Reason: Nausea And Vomiting Ondansetron HCl (Zofran) 4 mg IV Q8H PRN PRN Reason: Nausea And Vomiting Oxycodone HCl (Roxicodone) 20 mg PO Q6H PRN PRN Reason: Pain, Moderate (4-6) Last Admin: 03/16/19 04:48 Dose: 20 mg Documented by: Sodium Chloride (Sodium Chloride Flush Syringe 10 Ml) 10 ml IV BID [facility] Last Admin: 03/15/19 22:33 Dose: 10 ml Documented by: Sodium Chloride (Sodium Chloride Flush Syringe 10 Ml) 10 ml IV PRN PRN PRN Reason: LINE FLUSH Review of Systems All systems: negative Musculoskeletal: low back pain Integumentary: lesions (on both legs--Pustular) Exam - Constitutional Vitals: Temp Pulse Resp BP Pulse Ox 98.7 F 117 H 18 112/60 94 03/16/19 05:21 03/16/19 05:21 03/16/19 05:48 03/16/19 05:21 03/16/19 05:21 General appearance: Present: no acute distress, well-nourished - EENT Eyes: Present: PERRL ENT: hearing intact, clear oral mucosa - Neck Neck: Present: supple, normal ROM - Respiratory Respiratory effort: normal Respiratory: bilateral: CTA - Cardiovascular Heart rate: 78 Rhythm: regular Heart Sounds: Present: S1 & S2. Absent: rub, click - Extremities Extremities: pulses symmetrical, No edema Peripheral Pulses: within normal limits - Abdominal General gastrointestinal: Present: soft, non-tender, non-distended, normal bowel sounds Female genitourinary: Present: normal - Integumentary Integumentary: Present: clear, warm, dry - Musculoskeletal Musculoskeletal: gait normal, strength equal bilaterally - Psychiatric Psychiatric: appropriate mood/affect, intact judgment & insight - Neurologic Neurologic: CNII-XII intact, moves all extremities Results - Labs CBC & Chem 7: 03/14/19 16:16 03/15/19 Unknown Labs: Abnormal lab results 03/15/19 Range/Units Unknown Sodium 130 L (137-145) mmol/L Chloride 95.4 L (98-107) mmol/L Glucose 117 H (65-100) mg/dL Calcium 7.7 L (8.4-10.2) mg/dL BMP 03/15/19 Unknown Sodium 130 L Potassium 4.0 Chloride 95.4 L Carbon Dioxide 23 BUN 7 Creatinine 0.7 Glucose 117 H Calcium 7.7 L Assessment and Plan - Patient Problems (1) Lower back pain Current Visit: Yes Status: Chronic Qualifiers: Chronicity: chronic Plan to address problem: Symptomatic treatmnt of 20 weeks Analgesics on lower doses (2) Hep C w/o coma, chronic Current Visit: Yes Status: Chronic Plan to address problem: Refer to GI as outpatient for treatment of HCV (3) SIRS (systemic inflammatory response syndrome) Current Visit: Yes Status: Acute Plan to address problem: defer to ID regarding Abx (4) Staph skin infection Current Visit: Yes Status: Acute Plan to address problem: On Vancomycin (5) DVT prophylaxis Current Visit: Yes Status: Acute Plan to address problem: On SCD's
--- NOTE | 2019-03-16 08:11 | Progress Note ---
Assessment and Plan Cultures: Blood cultures 03/14/2019 : MSSA 3 out of 4 bottles Urine culture 03/14/2019: Beta hemolytic strep Group B MRSA culture 03/14/19: in progress Blood cultures 03/16/19: in progress Assessment: 28 y/o female previous IVDU (last time 2 years ago), HCV, genital herpes, trichomonas, chronic opioid use, chronic back pain, recent UTI, with 20w6d with a week history generalized malaise, body aches, subjective fever and multiple skin lesions on bilateral arms and legs: 1) SIRS v/s sepsis: Improved. Still low grade fever and tachycardia. Unclear etiology ? concern of pustules and bacteremia ? Staph infection ?epidural abscess. +/- UTI. 2) Complicated MSSA bacteremia: + CVA tenderness/pain source most likely UTI vs epidural abscess. Thoracic and Lumbar MRI pending clearance with MFM. Will order TTE. Follow-up blood cultures for ID and PRETTY's 3) Multiple skin nodules ? pustules ? scratching v/s emboli phenomena 4) UTI: UA wbc 24, large LE. Urine culture grew Beta hemolytic strep group B. Renal US showed no mass or hydronephrosis. Negative renal sonogram. 5) Drug/tobacco abuse:UDS + amphetamines, cessation and rehabilitation discussed 6) HCV 7) Multiple drug allergies Recommendations: MSSA bacteremia. will have to do 4 weeks of inpatient antibiotic therapy, unable to do PICC because of IV drug history continue vancomycin 1 gm IV every 12 hours, D3 discontinue aztreonam f/u blood cultures for ID and PRETTY's Repeat blood culture ordered TTE ordered Thoracic and Lumbar MRI pending clearance with MFM ( evaluation for epidural abscess) Dr Quevedo d/w Dr. Shauna Robertson, [employer] [facility] M: [id number] O:[phone] Subjective Date of service: 03/16/19 Principal diagnosis: IUP at 21wks, febrile morbidity, Hepatitis, Rash Interval history: Patient seen and examined. Reports generalized pain > on lower back and pelvis. Generalized weakness. Low grade fevers. Objective - Exam Narrative Exam: General appearance: Awake. Alert. Anxious. Eyes: anicteric sclerae, moist conjunctivae; no lid-lag; PERRLA HENT: Atraumatic; oropharynx clear with moist mucous membranes and no mucosal ulcerations/no oral thrush; normal hard and soft palate. Normal external ears. Neck: Trachea midline; supple, no thyromegaly or lymphadenopathy Lungs: CTA [place] CV: RRR no murmur Abdomen: Soft, non-tender; uterus, + CVA tenderness Musculoskeletal: No pedal edema, no cyanosis. Skin: No rash or abscess. Skin: multiple small erythematous nodules and some small shallow ulcers over upper extremities and legs Psych: Flat affect, alert and oriented to person, place and time. Neuro: alert and oriented x 3. Moving all extremities - Constitutional Vitals: Vital Signs Temp Pulse Resp BP Pulse Ox 98.7 F 117 H 18 112/60 94 03/16/19 05:21 03/16/19 05:21 03/16/19 05:48 03/16/19 05:21 03/16/19 05:21 Temperature -Last 24 Hours Temperature 98.7 F Temperature 100.2 F Temperature 97.8 F Temperature 97.8 F Temperature 100.6 F Temperature 100.5 F Temperature 98.2 F - Labs CBC & Chem 7: 03/16/19 09:32 03/16/19 09:32 Labs: Abnormal lab results 03/15/19 Range/Units Unknown Sodium 130 L (137-145) mmol/L Chloride 95.4 L (98-107) mmol/L Glucose 117 H (65-100) mg/dL Calcium 7.7 L (8.4-10.2) mg/dL
[2019-03-16] MEDS: DILAUDID IV PRN ×3 (08:42→23:18)
[2019-03-16 09:46] LABS: Hematocrit 28.2 % (30.3-42.9); Hemoglobin 9.7 gm/dl (10.1-14.3); Mean Corpuscular HGB Conc 35 % (30-34); Mean Corpuscular Volume 94 fl (79-97); Platelet Count 164 K/mm3 (140-440); Red Blood Count 3.01 M/mm3 (3.65-5.03); Red Cell Distribution Width 14.8 % (13.2-15.2)
[2019-03-16 10:06] LABS: Alanine Aminotransferase 12 units/L (7-56); Albumin 2.2 g/dL (3.9-5); BUN/Creatinine Ratio 9; Blood Urea Nitrogen 6 mg/dL (7-17); Calcium 8.4 mg/dL (8.4-10.2); Hemolysis Index 5
[2019-03-16 11:10] LABS: Band Neutrophils # (Manual) 0.1 K/mm3; Basophils % (Manual) 0 % (0.0-1.8); Eosinophils % (Manual) 0 % (0.0-4.3); Myelocytes # (Manual) 0.1 K/mm3; Total Cells Counted 100
[2019-03-16 11:11] LABS: Anisocytosis Few; Dohle Bodies Few; Ovalocytes Few; Platelet Estimate Consistent w Auto; Poikilocytosis Few
[2019-03-16] MEDS: PRENATAL VITAMIN PO SCH (11:30)
[2019-03-16] MEDS: PEPCID PO SCH ×2 (11:30→23:12)
[2019-03-16] MEDS: SODIUM CHLORIDE FLUSH SYRINGE 10 ML IV SCH ×2 (11:33→23:12)
--- NOTE | 2019-03-16 12:30 | Progress Note ---
Assessment and Plan A:IUP at 20w7d Febrile morbidity with body aches and ulcerated eruption on arms and legs Recent UTI diagnosis Hepatitis C Trichomonas with non-compliance with prescribed Flagyl Illicit drug use Chronic opioid use Tobacco use Degenerative Disc Disease Genital Herpes GBS positive P: Appreciate consults from ID, IM FHTs by doppler q shift ID following closely managing abx regimen- Vanc and aztreonam Closely monitor clinical status Awaiting blood and Urine cultures -repeat ordered MFM consult_ spoke with Dr. Hernandez MAYDA and renal US recommended by IM and Nephrology Subjective - Subjective Date of service: 03/16/19 Principal diagnosis: IUP at 21wks, febrile morbidity, Hepatitis, Rash Patient reports: appetite normal, voiding normally, no pain well controlled Objective - Vital Signs Latest vital signs: Vital Signs Temp Pulse Resp BP Pulse Ox 03/16/19 11:46 98.6 F 118 H 16 101/63 97 03/16/19 05:48 18 03/16/19 05:21 98.7 F 117 H 22 112/60 94 03/16/19 04:48 18 03/15/19 22:53 18 03/15/19 22:36 18 03/15/19 22:21 100.2 F H 121 H 20 98/54 95 03/15/19 21:36 18 03/15/19 16:04 97.8 F 120 H 16 110/59 93 03/15/19 12:30 97.8 F 122 H 16 109/45 93 Intake and Output 03/15/19 03/16/19 03/16/19 23:59 07:59 15:59 Intake Total 410 250 720 Balance 410 250 720 Intake: IV 50 250 AZACTAM/NS 1 GM/50 ML 1 50 gm In 50 ml @ 50 mls/hr IV Q8H ИРИНА Rx#:[id number] VANCOMYCIN/NS 1 GM/250 ML 250 1 gm In 250 ml @ 166.667 mls/hr IV Q12H ИРИНА Rx#: [id number] Oral 360 720 Other: Total, Intake Amount 360 720 Voiding Method Toilet Toilet # Voids Void 1 2 - Exam Breasts: Present: normal Cardiovascular: Present: Regular rate, Normal S1 Lungs: Present: Clear to auscultation, Normal air movement Abdomen: Present: normal appearance, soft, normal bowel sounds. Absent: distention, tenderness, guarding Uterus: Present: normal, firm, fundal height at umbilicus Extremities: Present: normal Deep Tendon Reflex Grade: Normal +2 - Labs Labs: Abnormal lab results 03/16/19 03/16/19 Range/Units 09:32 09:32 WBC 11.5 H (4.5-11.0) K/mm3 RBC 3.01 L (3.65-5.03) M/mm3 Hgb 9.7 L (10.1-14.3) gm/dl Hct 28.2 L (30.3-42.9) % MCHC 35 H (30-34) % Seg Neuts % (Manual) 92.0 H (40.0-70.0) % Lymphocytes % (Manual) 4.0 L (13.4-35.0) % Seg Neutrophils # Man 10.6 H (1.8-7.7) K/mm3 Lymphocytes # (Manual) 0.5 L (1.2-5.4) K/mm3 Sodium 134 L (137-145) mmol/L Chloride 97.6 L (98-107) mmol/L BUN 6 L (7-17) mg/dL Total Protein 5.8 L (6.3-8.2) g/dL Albumin 2.2 L (3.9-5) g/dL
--- NOTE | 2019-03-16 13:28 | Consultation ---
History of Present Illness Consult date: 03/16/19 Reason for consult: other (iv drug user hx, sepsis, IUP at 21 weeks) History of present illness: Ms. Morrissey is a 28 year old female JILLIAN 07/26/19 at 21.0 weeks who was admitted to [facility] ON 03/14/19 due to body aches, fever, and lesions on arms and legs. She is also being followed by ID and Internal Medicine. Positive urine cultures Beta hemolytic strep B and Blood cultures positive for Staph aureus- current treatment with Vanc and Azactam. She complains of generalized body pain. She denies obstetric complaints. She admits to positive movements. She admits to history of Hepatitis C, genital herpes, trichomonas (with pt non-compliance with medication), illicit drug abuse evidenced by positive drug screen, chronic opioid use secondary to chronic back pain, tobacco use and GBS positive status. She denies recent IV drug use (last use 2 years ago). Past History Past Medical History: hepatitis (Hepatitis C), other (degenerative disc disease with chronic opioid use ) Past Surgical History: D&C [employer] History: hepatitis C, herpes, trichomonas (non-compliant with treatment ) Family/Genetic History: hypertension - Obstetrical History : 7 Medications and Allergies Allergies Allergy/AdvReac Type Severity Reaction Status Date / Time Penicillins Allergy Unknown Verified 07/10/14 11:45 doxycycline AdvReac Vomiting Verified 07/10/14 11:45 ketorolac tromethamine AdvReac Vomiting Verified 07/10/14 11:45 [From Toradol] tramadol AdvReac Vomiting Verified 07/10/14 11:45 Home Medications Medication Instructions Recorded Confirmed Last Taken Type Acetaminophen/Codeine 1 tab PO Q6H PRN #15 tab 07/10/14 Unknown Rx [Acetaminophen-Codeine #3 TAB] Clindamycin [Clindamycin CAP] 300 mg PO Q8H #30 cap 07/10/14 Unknown Rx Ferrous Sulfate 325 mg PO BID #60 tablet. 05/26/18 Unknown Rx Ibuprofen [Motrin] 600 mg PO Q8H PRN #30 tablet 05/26/18 Unknown Rx oxyCODONE /ACETAMINOPHEN [Percocet 1 tab PO Q6HR PRN #30 tablet 05/26/18 Unknown Rx 5/325] Nitrofurantoin Walton/M-Cryst 100 mg PO BID #14 capsule 03/11/19 Unknown Rx [Macrobid CAP] Active Meds: Active Medications Acetaminophen (Tylenol) 650 mg PO Q4H PRN PRN Reason: Pain MILD(1-3)/Fever >100.5/QUEEN Last Admin: 03/15/19 21:36 Dose: 650 mg Documented by: Docusate Sodium (Colace) 100 mg PO Q12H PRN PRN Reason: Constipation Famotidine (Pepcid) 20 mg PO BID [facility] Last Admin: 03/16/19 11:30 Dose: 20 mg Documented by: Hydromorphone HCl (Dilaudid) 0.5 mg IV Q3H PRN PRN Reason: Pain , Severe (7-10) Last Admin: 03/16/19 08:42 Dose: 0.5 mg Documented by: Vancomycin HCl (Vancomycin/Ns 1 Gm/250 Ml) 1 gm in 250 mls @ 166.667 mls/hr IV Q12H [facility]; Protocol Last Admin: 03/16/19 05:59 Dose: 166.667 mls/hr Documented by: Sodium Chloride (Nacl 0.9% 1000 Ml) 1,000 mls @ 75 mls/hr IV DIRECT [facility] Last Admin: 03/15/19 22:33 Dose: 75 mls/hr Documented by: Multivitamins/Iron/Calcium ( Vitamin) 1 each PO QDAY [facility] Last Admin: 03/16/19 11:30 Dose: 1 each Documented by: Ondansetron HCl (Zofran) 4 mg IV Q6H PRN PRN Reason: Nausea And Vomiting Ondansetron HCl (Zofran) 4 mg IV Q8H PRN PRN Reason: Nausea And Vomiting Oxycodone HCl (Roxicodone) 20 mg PO Q6H PRN PRN Reason: Pain, Moderate (4-6) Last Admin: 03/16/19 11:31 Dose: 20 mg Documented by: Sodium Chloride (Sodium Chloride Flush Syringe 10 Ml) 10 ml IV BID [facility] Last Admin: 03/16/19 11:33 Dose: 10 ml Documented by: Sodium Chloride (Sodium Chloride Flush Syringe 10 Ml) 10 ml IV PRN PRN PRN Reason: LINE FLUSH Review of Systems Constitutional: weakness, chronic pain Eyes: deferred Ears, nose, mouth and throat: deferred Cardiovascular: leg edema, other (denies chest pain, palpitations, sob,) Respiratory: other (denies SOB, wheezing, coughing) Breasts: deferred Gastrointestinal: other (complains of pressure, denies contractions, diarrhea, constipation, nausea) Genitourinary: other (denies dysuria, bleeding, leaking of fluid) Rectal Exam: deferred Integumentary: other (lesions appreciated on legs and arms) - Vital Signs Vital signs: Vital Signs Pulse Pulse Ox 132 H 100 03/14/19 13:53 03/14/19 13:53 Temp Pulse Resp BP Pulse Ox 98.6 F 118 H 16 101/63 97 03/16/19 11:46 03/16/19 11:46 03/16/19 11:46 03/16/19 11:46 03/16/19 11:46 - Physical Exam Breasts: Positive: deferred Cardiovascular: Regular rate, Normal S1, Normal S2 Lungs: Positive: Clear to auscultation, Normal air movement Abdomen: Positive: soft, other (gravid) Results Result Diagrams: 03/16/19 09:32 03/16/19 09:32 Abnormal lab results 03/16/19 03/16/19 Range/Units 09:32 09:32 WBC 11.5 H (4.5-11.0) K/mm3 RBC 3.01 L (3.65-5.03) M/mm3 Hgb 9.7 L (10.1-14.3) gm/dl Hct 28.2 L (30.3-42.9) % MCHC 35 H (30-34) % Seg Neuts % (Manual) 92.0 H (40.0-70.0) % Lymphocytes % (Manual) 4.0 L (13.4-35.0) % Seg Neutrophils # Man 10.6 H (1.8-7.7) K/mm3 Lymphocytes # (Manual) 0.5 L (1.2-5.4) K/mm3 Sodium 134 L (137-145) mmol/L Chloride 97.6 L (98-107) mmol/L BUN 6 L (7-17) mg/dL Total Protein 5.8 L (6.3-8.2) g/dL Albumin 2.2 L (3.9-5) g/dL All other labs normal. Assessment and Plan A: IUP at 21 weeks- JILLIAN 07/26/19 (previable) Blood cultures positive- staph aureus Urine culture positive- beta hemolytic strep b Drug screen positive- amphetamines Tachycardia, Afebrile, BP stable Chronic pain IVDU hx- last use 2 years ago Hepatitis C hx Trichomonas with non-compliance with prescribed Flagyl Illicit drug use Chronic opioid use Tobacco use Degenerative Disc Disease Genital Herpes GBS positive P: Continue with current plan of care Refer to Internal Medicine and Infectious Disease for continued hospital medical management. For additional Obsterical questions or concerns fetus (previable), please contact EMBER donation specialist MD. Perform Obsterical ultrasound for growth and surveillance OK to perform Cardiac echo OK to perform Renal ultrasound OK to perform MRI with contrast if benefits outweigh risk during (Discussed with Dr. Guadarrama) If higher level of care is indicated, ok to transfer and have Perinatology follow as indicated. Monitor for fevers, hypotension Pain management FHTs by doppler q shift Thank you for your consult. Please contact donation specialist EMBER DIAZ for additional questions/concerns. Dina Langley NP
--- NOTE | 2019-03-16 14:07 | Progress Note ---
Assessment and Plan Assessment and plan: Followed by Attending, OB/Roll Changer Pre- care as per OB/Gyne Hep C Supportive care Sepsis Continue Vancomycin Staph aureus bacteremia Hyponatremia Repeat in am Amhetamine positive UDS Patient denies Amphetamine use Full code status. History Interval history: Fever Hospitalist Physical - Physical exam Narrative exam: Gen: Not in acute distress, lying in bed, HEENT: Normocephalic, atraumatic Neck: supple, no JVD Heart: S1 and S2 reg, no murmurs, rubs or gallop Lungs: Clear, no crackles, no wheeze Abd: soft, non tender, , normal BS Ext: No edema, no clubbing, no cyanosis, Neuro: Awake,alert, oriented x 3, moves all ext, non focal Psych:Normal mood - Constitutional Vitals: Temp Pulse Resp BP Pulse Ox 98.6 F 118 H 16 101/63 97 03/16/19 11:46 03/16/19 11:46 03/16/19 11:46 03/16/19 11:46 03/16/19 11:46 General appearance: Present: no acute distress Results - Labs CBC & Chem 7: 03/17/19 Unknown 03/17/19 Unknown Labs: Laboratory Last Values WBC 11.5 K/mm3 (4.5-11.0) H 03/16/19 09:32 RBC 3.01 M/mm3 (3.65-5.03) L 03/16/19 09:32 Hgb 9.7 gm/dl (10.1-14.3) L 03/16/19 09:32 Hct 28.2 % (30.3-42.9) L 03/16/19 09:32 MCV 94 fl (79-97) 03/16/19 09:32 MCH 32 pg (28-32) 03/16/19 09:32 MCHC 35 % (30-34) H 03/16/19 09:32 RDW 14.8 % (13.2-15.2) 03/16/19 09:32 Plt Count 164 K/mm3 (140-440) 03/16/19 09:32 Add Manual Diff Complete 03/16/19 09:32 Total Counted 100 03/16/19 09:32 Seg Neutrophils % [employer] 03/14/19 16:16 Seg Neuts % (Manual) 92.0 % (40.0-70.0) H 03/16/19 09:32 1.0 % 03/16/19 09:32 4.0 % (13.4-35.0) L 03/16/19 09:32 Reactive Lymphs % (Man) 0 % 03/16/19 09:32 2.0 % (0.0-7.3) 03/16/19 09:32 0 % (0.0-4.3) 03/16/19 09:32 0 % (0.0-1.8) 03/16/19 09:32 0 % 03/16/19 09:32 1.0 % 03/16/19 09:32 0 % 03/16/19 09:32 0 % 03/16/19 09:32 Nucleated RBC % Not Reportable 03/16/19 09:32 Seg Neutrophils # Man 10.6 K/mm3 (1.8-7.7) H 03/16/19 09:32 Band Neutrophils # 0.1 K/mm3 03/16/19 09:32 0.5 K/mm3 (1.2-5.4) L 03/16/19 09:32 Abs React Lymphs (Man) 0.0 K/mm3 03/16/19 09:32 0.2 K/mm3 (0.0-0.8) 03/16/19 09:32 0.0 K/mm3 (0.0-0.4) 03/16/19 09:32 0.0 K/mm3 (0.0-0.1) 03/16/19 09:32 0.0 K/mm3 03/16/19 09:32 0.1 K/mm3 03/16/19 09:32 0.0 K/mm3 03/16/19 09:32 Blast Cells # 0.0 K/mm3 03/16/19 09:32 WBC Morphology Not Reportable 03/16/19 09:32 Hypersegmented Neuts Not Reportable 03/16/19 09:32 Hyposegmented Neuts Not Reportable 03/16/19 09:32 Hypogranular Neuts Not Reportable 03/16/19 09:32 Not Reportable 03/16/19 09:32 Not Reportable 03/16/19 09:32 Not Reportable 03/16/19 09:32 Few 03/16/19 09:32 Not Reportable 03/16/19 09:32 Not Reportable 03/16/19 09:32 Consistent w auto 03/16/19 09:32 Not Reportable 03/16/19 09:32 Plt Clumps, EDTA Not Reportable 03/16/19 09:32 Not Reportable 03/16/19 09:32 Not Reportable 03/16/19 09:32 Not Reportable 03/16/19 09:32 Plt Morphology Comment Not Reportable 03/16/19 09:32 RBC Morphology Not Reportable 03/16/19 09:32 Dimorphic RBCs Not Reportable 03/16/19 09:32 Not Reportable 03/16/19 09:32 Not Reportable 03/16/19 09:32 Few 03/16/19 09:32 Few 03/16/19 09:32 Not Reportable 03/16/19 09:32 Not Reportable 03/16/19 09:32 Not Reportable 03/16/19 09:32 Not Reportable 03/16/19 09:32 Not Reportable 03/16/19 09:32 Not Reportable 03/16/19 09:32 Not Reportable 03/16/19 09:32 Few 03/16/19 09:32 Not Reportable 03/16/19 09:32 Not Reportable 03/16/19 09:32 Not Reportable 03/16/19 09:32 Not Reportable 03/16/19 09:32 Not Reportable 03/16/19 09:32 Not Reportable 03/16/19 09:32 Not Reportable 03/16/19 09:32 Acanthocytes (Spur) Not Reportable 03/16/19 09:32 Rouleaux Not Reportable 03/16/19 09:32 Not Reportable 03/16/19 09:32 Not Reportable 03/16/19 09:32 Not Reportable 03/16/19 09:32 Not Reportable 03/16/19 09:32 Hem Pathologist Commnt No 03/16/19 09:32 Sodium 134 mmol/L (137-145) L 03/16/19 09:32 Potassium 3.9 mmol/L (3.6-5.0) 03/16/19 09:32 Chloride 97.6 mmol/L (98-107) L 03/16/19 09:32 Carbon Dioxide 22 mmol/L (22-30) 03/16/19 09:32 18 mmol/L 03/16/19 09:32 BUN 6 mg/dL (7-17) L 03/16/19 09:32 0.7 mg/dL (0.7-1.2) 03/16/19 09:32 Estimated GFR > 60 ml/min 03/16/19 09:32 9 % 03/16/19 09:32 Glucose 97 mg/dL (65-100) 03/16/19 09:32 Calcium 8.4 mg/dL (8.4-10.2) 03/16/19 09:32 0.30 mg/dL (0.1-1.2) 03/16/19 09:32 AST 17 units/L (5-40) 03/16/19 09:32 ALT 12 units/L (7-56) 03/16/19 09:32 120 units/L (35-129) 03/16/19 09:32 5.8 g/dL (6.3-8.2) L 03/16/19 09:32 2.2 g/dL (3.9-5) L 03/16/19 09:32 0.6 % 03/16/19 09:32 Yellow (Yellow) 03/14/19 18:40 Slightly-cloudy (Clear) 03/14/19 18:40 6.0 (5.0-7.0) 03/14/19 18:40 Ur Specific Devol 1.008 (1.003-1.030) 03/14/19 18:40 30 mg/dl mg/dL (Negative) 03/14/19 18:40 Neg mg/dL (Negative) 03/14/19 18:40 Neg mg/dL (Negative) 03/14/19 18:40 Sm (Negative) 03/14/19 18:40 Neg (Negative) 03/14/19 18:40 Neg (Negative) 03/14/19 18:40 < 2.0 mg/dL (<2.0) 03/14/19 18:40 Ur Leukocyte Esterase Lg (Negative) 03/14/19 18:40 24.0 /HPF (0.0-6.0) H 03/14/19 18:40 28.0 /HPF (0.0-6.0) 03/14/19 18:40 U Epithel Cells (Auto) 3.0 /HPF (0-13.0) 03/14/19 18:40 1+ /HPF (Negative) 03/14/19 18:40 1+ /HPF 03/14/19 18:40 Presumptive negative 03/14/19 18:40 Presumptive negative 03/14/19 18:40 Ur Barbiturates Screen Presumptive negative 03/14/19 18:40 Ur Phencyclidine Scrn Presumptive negative 03/14/19 18:40 Ur Amphetamines Screen Presumptive positive 03/14/19 18:40 U Benzodiazepines Scrn Presumptive negative 03/14/19 18:40 Presumptive negative 03/14/19 18:40 U Marijuana (THC) Screen Presumptive negative 03/14/19 18:40 Disclamer 03/14/19 18:40 RPR Nonreactive (Nonreactive) 03/14/19 16:16 HIV 1&2 Antibody Rapid Non react (Non React) 03/14/19 16:16 Non react (Non React) 03/14/19 16:16 Influenza A (Rapid) Negative (Negative) 03/14/19 10:10 Influenza B (Rapid) Negative (Negative) 03/14/19 10:10 Blood Type A POSITIVE 03/14/19 16:16 Antibody Screen Negative 03/14/19 16:16 Active Medications - Current Medications Current Medications: Generic Name Dose Route Start Last Admin Trade Name Freq PRN Reason Stop Dose Admin Acetaminophen 650 mg 03/14/19 14:37 03/15/19 21:36 Tylenol PO 650 mg Q4H PRN Administration Pain MILD(1-3)/Fever >100.5/QUEEN Docusate Sodium 100 mg 03/14/19 14:37 Colace PO Q12H PRN Constipation Famotidine 20 mg 03/15/19 22:00 03/16/19 11:30 Pepcid PO 20 mg BID ИРИНА Administration Hydromorphone HCl 0.5 mg 03/15/19 21:49 03/16/19 08:42 Dilaudid IV 0.5 mg Q3H PRN Administration Pain , Severe (7-10) Vancomycin HCl 1 gm in 250 mls @ 166.667 mls/hr 03/14/19 16:00 03/16/19 05:59 Vancomycin/Ns 1 Gm/250 Ml IV 166.667 mls/hr Q12H ИРИНА Administration Protocol Sodium Chloride 1,000 mls @ 75 mls/hr 03/15/19 22:00 03/15/19 22:33 Nacl 0.9% 1000 Ml IV 75 mls/hr DIRECT ИРИНА Administration Multivitamins/Iron/Calcium 1 each 03/15/19 10:00 03/16/19 11:30 Vitamin PO 1 each QDAY ИРИНА Administration Ondansetron HCl 4 mg 03/14/19 14:37 Zofran IV Q6H PRN Nausea And Vomiting Ondansetron HCl 4 mg 03/15/19 21:49 Zofran IV Q8H PRN Nausea And Vomiting Oxycodone HCl 20 mg 03/15/19 10:00 03/16/19 11:31 Roxicodone PO 20 mg Q6H PRN Administration Pain, Moderate (4-6) Sodium Chloride 10 ml 03/15/19 22:00 03/16/19 11:33 Sodium Chloride Flush Syringe 10 Ml IV 10 ml BID ИРИНА Administration Sodium Chloride 10 ml 03/15/19 21:49 Sodium Chloride Flush Syringe 10 Ml IV PRN PRN LINE FLUSH
--- NOTE | 2019-03-16 14:14 | Ultrasound Report ---
Renal sonogram: History: Pyelonephritis or hydronephrosis. Findings: Right kidney 13.2 x 3.7 x 5.8 cm. Cortical thickness 0.9 cm. Left kidney 9.5 x 4.8 x 6.3 cm. Cortical thickness is 1.3 cm. This No mass or hydronephrosis. The patient voided before the examination the bladder. Impression: Essentially negative renal sonogram.
[2019-03-16] MEDS: NACL 0.9% 1000 ML 1,000 ML IV SCH (20:41)
[2019-03-17] MEDS: TYLENOL PO PRN ×2 (02:16→12:13)
[2019-03-17] MEDS: ROXICODONE PO PRN ×2 (02:17→09:59)
[2019-03-17] MEDS: VANCOMYCIN/NS 1 GM/250 ML 1 GM/250 ML BAG IV SCH (04:06)
[2019-03-17] MEDS: DILAUDID IV PRN ×4 (06:08→18:47)
[2019-03-17 07:41] LABS: Hematocrit 27.3 % (30.3-42.9); Hemoglobin 9.3 gm/dl (10.1-14.3); Mean Corpuscular HGB Conc 34 % (30-34); Mean Corpuscular Volume 96 fl (79-97); Platelet Count 181 K/mm3 (140-440); Red Blood Count 2.86 M/mm3 (3.65-5.03); Red Cell Distribution Width 14.9 % (13.2-15.2)
[2019-03-17 07:54] LABS: BUN/Creatinine Ratio 7; Blood Urea Nitrogen 4 mg/dL (7-17); Calcium 7.8 mg/dL (8.4-10.2); Hemolysis Index 18
--- NOTE | 2019-03-17 09:40 | Progress Note ---
Assessment and Plan Cultures: Blood cultures 03/14/2019 : MRSA 3 out of 4 bottles Urine culture 03/14/2019: Beta hemolytic strep Group B MRSA culture 03/14/19: in progress Blood cultures 03/16/19: GPC, 1 out of 4 bottles Assessment: 28 y/o female previous IVDU (last time 2 years ago), HCV, genital herpes, trichomonas, chronic opioid use, chronic back pain, recent UTI, with 20w6d with a week history generalized malaise, body aches, subjective fever and multiple skin lesions on bilateral arms and legs: 1) SIRS v/s sepsis: Leukocytosis continuing. No fevers. Unclear etiology ? concern of pustules and bacteremia ? Staph infection ?epidural abscess. +/- UTI. 2) Complicated MRSA bacteremia: + CVA tenderness/pain source most likely UTI vs epidural abscess. Will order TTE. Follow-up blood cultures for ID and PRETTY's. Repeat blood cultures grew 1 out of 4 bottles. Will repeat blood cultures in 48 hours to insure clearance. Will need MAYDA for persistant GPC bacteremia. 3) Multiple skin nodules ? pustules ? scratching v/s emboli phenomena 4) UTI: UA wbc 24, large LE. Urine culture grew Beta hemolytic strep group B. Renal US showed no mass or hydronephrosis. Negative renal sonogram. 5) Drug/tobacco abuse:UDS + amphetamines, cessation and rehabilitation discussed 6) HCV 7) Multiple drug allergies Recommendations: MRSA bacteremia. will have to do 6 weeks of inpatient antibiotic therapy, unable to do PICC because of IV drug history continue vancomycin 1 gm IV every 12 hours, D3 follow-up repeat blood cultures Will need MAYDA for persistant GPC bacteremia.- Please consult with Cardiology, Discussed with Dr. Lamar follow-up TTE Follow-up Thoracic and Lumbar MRI - Cleared with [facility] Contact isolation for MRSA Agree with transfer to [facility] M: [phone] O:[phone] Subjective Date of service: 03/17/19 Principal diagnosis: IUP at 21wks, febrile morbidity, Hepatitis, Rash Interval history: Patient seen and examined. Reports increased lower back pain 10/10 on numeric pain scale. No fevers. Objective - Exam Narrative Exam: General appearance: Awake. Alert. Anxious. Lower back pain 10/10. Eyes: anicteric sclerae, moist conjunctivae; no lid-lag; PERRLA HENT: Atraumatic; oropharynx clear with moist mucous membranes and no mucosal ulcerations/no oral thrush; normal hard and soft palate. Normal external ears. Neck: Trachea midline; supple, no thyromegaly or lymphadenopathy Lungs: CTA clinton CV: RRR no murmur Abdomen: Soft, non-tender; uterus, + CVA tenderness Musculoskeletal: No pedal edema, no cyanosis. Skin: No rash or abscess. Skin: multiple small erythematous nodules and some small shallow ulcers over upper extremities and legs Psych: Flat affect, alert and oriented to person, place and time. Neuro: alert and oriented x 3. Moving all extremities - Constitutional Vitals: Vital Signs Temp Pulse Resp BP Pulse Ox 99.3 F 117 H 16 109/61 94 03/17/19 06:01 03/17/19 06:01 03/17/19 06:01 03/17/19 06:01 03/17/19 06:01 Temperature -Last 24 Hours Temperature 99.3 F Temperature 99.8 F Temperature 99.1 F Temperature 98.6 F - Labs CBC & Chem 7: 03/17/19 Unknown 03/17/19 Unknown Labs: Abnormal lab results 03/16/19 03/16/19 03/16/19 Range/Units 09:32 09:32 15:01 WBC 11.5 H (4.5-11.0) K/mm3 RBC 3.01 L (3.65-5.03) M/mm3 Hgb 9.7 L (10.1-14.3) gm/dl Hct 28.2 L (30.3-42.9) % MCH (28-32) pg MCHC 35 H (30-34) % Seg Neuts % (Manual) 92.0 H (40.0-70.0) % Lymphocytes % (Manual) 4.0 L (13.4-35.0) % Seg Neutrophils # Man 10.6 H (1.8-7.7) K/mm3 Lymphocytes # (Manual) 0.5 L (1.2-5.4) K/mm3 Sodium 134 L (137-145) mmol/L Chloride 97.6 L (98-107) mmol/L BUN 6 L (7-17) mg/dL Creatinine (0.7-1.2) mg/dL Glucose (65-100) mg/dL Calcium (8.4-10.2) mg/dL Total Protein 5.8 L (6.3-8.2) g/dL Albumin 2.2 L (3.9-5) g/dL Vancomycin Trough 4.0 L (5.0-20.0) ug/mL 03/17/19 03/17/19 Range/Units Unknown Unknown WBC 12.0 H (4.5-11.0) K/mm3 RBC 2.86 L (3.65-5.03) M/mm3 Hgb 9.3 L (10.1-14.3) gm/dl Hct 27.3 L (30.3-42.9) % MCH 33 H (28-32) pg MCHC (30-34) % Seg Neuts % (Manual) (40.0-70.0) % Lymphocytes % (Manual) (13.4-35.0) % Seg Neutrophils # Man (1.8-7.7) K/mm3 Lymphocytes # (Manual) (1.2-5.4) K/mm3 Sodium 135 L (137-145) mmol/L Chloride 97.1 L (98-107) mmol/L BUN 4 L (7-17) mg/dL Creatinine 0.6 L (0.7-1.2) mg/dL Glucose 104 H (65-100) mg/dL Calcium 7.8 L (8.4-10.2) mg/dL Total Protein (6.3-8.2) g/dL Albumin (3.9-5) g/dL Vancomycin Trough (5.0-20.0) ug/mL
[2019-03-17] MEDS: PRENATAL VITAMIN PO SCH (09:59)
[2019-03-17] MEDS: PEPCID PO SCH (09:59)
[2019-03-17] MEDS: SODIUM CHLORIDE FLUSH SYRINGE 10 ML IV SCH (10:04)
[2019-03-17] MEDS ORDERED: VANCOMYCIN 1,500 MG in NACL 0.9% 500 ML 500 ML IV SCH (12:00)
--- NOTE | 2019-03-17 13:16 | Progress Note ---
Assessment and Plan A:IUP at 21 weeks Febrile morbidity with body aches and ulcerated eruption on arms and legs Recent UTI diagnosis Hepatitis C Trichomonas with non-compliance with prescribed Flagyl Illicit drug use Chronic opioid use Tobacco use Degenerative Disc Disease Genital Herpes GBS positive Staph aureus MRSA P: Appreciate consults from ID, IM FHTs by doppler q shift ID following closely managing abx regimen- Vanc and aztreonam Closely monitor clinical status appreciate MFM and ID and IM consult Subjective - Subjective Date of service: 03/17/19 Principal diagnosis: IUP at 21wks, febrile morbidity, Hepatitis, Rash Patient reports: appetite normal, voiding normally, pain well controlled Objective - Vital Signs Latest vital signs: Vital Signs Temp Pulse Resp BP Pulse Ox 03/17/19 12:14 20 03/17/19 12:13 20 03/17/19 12:01 101.0 F H 127 H 20 122/73 93 03/17/19 10:59 16 03/17/19 09:59 17 03/17/19 06:01 99.3 F 117 H 16 109/61 94 03/17/19 00:22 99.8 F H 119 H 20 107/67 95 03/16/19 17:40 99.1 F 113 H 20 109/62 94 Intake and Output 03/16/19 03/17/19 03/17/19 23:59 07:59 15:59 Intake Total 970 250 Balance 970 250 Intake: IV 250 250 VANCOMYCIN/NS 1 GM/250 ML 250 250 1 gm In 250 ml @ 166.667 mls/hr IV Q12H [facility] Rx#: [id number] Oral 720 Other: Total, Intake Amount 720 # Voids Void 4 # Bowel Movements 0 - Exam Breasts: Present: normal Cardiovascular: Present: Regular rate, Normal S1 Lungs: Present: Clear to auscultation, Normal air movement Abdomen: Present: normal appearance, soft, normal bowel sounds. Absent: distention, tenderness, guarding Vulva: both: normal Uterus: Present: normal, firm. Absent: bogginess, tenderness Extremities: Present: normal Deep Tendon Reflex Grade: Normal +2 Incision: Present: normal - Labs Labs: Abnormal lab results 03/16/19 03/17/19 03/17/19 Range/Units 15:01 Unknown Unknown WBC 12.0 H (4.5-11.0) K/mm3 RBC 2.86 L (3.65-5.03) M/mm3 Hgb 9.3 L (10.1-14.3) gm/dl Hct 27.3 L (30.3-42.9) % MCH 33 H (28-32) pg Sodium 135 L (137-145) mmol/L Chloride 97.1 L (98-107) mmol/L BUN 4 L (7-17) mg/dL Creatinine 0.6 L (0.7-1.2) mg/dL Glucose 104 H (65-100) mg/dL Calcium 7.8 L (8.4-10.2) mg/dL Vancomycin Trough 4.0 L (5.0-20.0) ug/mL
--- NOTE | 2019-03-17 15:13 | Progress Note ---
Assessment and Plan Assessment and plan: Followed by Attending, OB/Sow Manager Pre- care as per OB/Gyne Hep C Supportive care Sepsis with MRSA Continue Vancomycin leukocytosis due to sepsis Hyponatremia Monitor Amphetamine positive UDS Patient denies Amphetamine use Full code status. Disposition: patient is seriously ill, has multiple comorbidities and is . Plan is to transfer [facility]. History Interval history: Fever Hospitalist Physical - Physical exam Narrative exam: Gen: Not in acute distress, lying in bed, HEENT: Normocephalic, atraumatic Neck: supple, no JVD Heart: S1 and S2 reg, no murmurs, rubs or gallop Lungs: Clear, no crackles, no wheeze Abd: soft, non tender, , normal BS Ext: No edema, no clubbing, no cyanosis, Neuro: Awake,alert, oriented x 3, moves all ext, non focal Psych:Normal mood - Constitutional Vitals: Temp Pulse Resp BP Pulse Ox 101.0 F H 127 H 20 122/73 93 03/17/19 12:01 03/17/19 12:01 03/17/19 13:39 03/17/19 12:01 03/17/19 12:01 General appearance: Present: no acute distress Results - Labs CBC & Chem 7: 03/17/19 Unknown 03/17/19 Unknown Labs: Laboratory Last Values WBC 12.0 K/mm3 (4.5-11.0) H 03/17/19 Unknown RBC 2.86 M/mm3 (3.65-5.03) L 03/17/19 Unknown Hgb 9.3 gm/dl (10.1-14.3) L 03/17/19 Unknown Hct 27.3 % (30.3-42.9) L 03/17/19 Unknown MCV 96 fl (79-97) 03/17/19 Unknown MCH 33 pg (28-32) H 03/17/19 Unknown MCHC 34 % (30-34) 03/17/19 Unknown RDW 14.9 % (13.2-15.2) 03/17/19 Unknown Plt Count 181 K/mm3 (140-440) 03/17/19 Unknown Add Manual Diff Complete 03/16/19 09:32 Total Counted 100 03/16/19 09:32 Seg Neutrophils % Doctor Of Podiatric Medicine 03/14/19 16:16 Seg Neuts % (Manual) 92.0 % (40.0-70.0) H 03/16/19 09:32 1.0 % 03/16/19 09:32 4.0 % (13.4-35.0) L 03/16/19 09:32 Reactive Lymphs % (Man) 0 % 03/16/19 09:32 2.0 % (0.0-7.3) 03/16/19 09:32 0 % (0.0-4.3) 03/16/19 09:32 0 % (0.0-1.8) 03/16/19 09:32 0 % 03/16/19 09:32 1.0 % 03/16/19 09:32 0 % 03/16/19 09:32 0 % 03/16/19 09:32 Nucleated RBC % Not Reportable 03/16/19 09:32 Seg Neutrophils # Man 10.6 K/mm3 (1.8-7.7) H 03/16/19 09:32 Band Neutrophils # 0.1 K/mm3 03/16/19 09:32 0.5 K/mm3 (1.2-5.4) L 03/16/19 09:32 Abs React Lymphs (Man) 0.0 K/mm3 03/16/19 09:32 0.2 K/mm3 (0.0-0.8) 03/16/19 09:32 0.0 K/mm3 (0.0-0.4) 03/16/19 09:32 0.0 K/mm3 (0.0-0.1) 03/16/19 09:32 0.0 K/mm3 03/16/19 09:32 0.1 K/mm3 03/16/19 09:32 0.0 K/mm3 03/16/19 09:32 Blast Cells # 0.0 K/mm3 03/16/19 09:32 WBC Morphology Not Reportable 03/16/19 09:32 Hypersegmented Neuts Not Reportable 03/16/19 09:32 Hyposegmented Neuts Not Reportable 03/16/19 09:32 Hypogranular Neuts Not Reportable 03/16/19 09:32 Not Reportable 03/16/19 09:32 Not Reportable 03/16/19 09:32 Not Reportable 03/16/19 09:32 Few 03/16/19 09:32 Not Reportable 03/16/19 09:32 Not Reportable 03/16/19 09:32 Consistent w auto 03/16/19 09:32 Not Reportable 03/16/19 09:32 Plt Clumps, EDTA Not Reportable 03/16/19 09:32 Not Reportable 03/16/19 09:32 Not Reportable 03/16/19 09:32 Not Reportable 03/16/19 09:32 Plt Morphology Comment Not Reportable 03/16/19 09:32 RBC Morphology Not Reportable 03/16/19 09:32 Dimorphic RBCs Not Reportable 03/16/19 09:32 Not Reportable 03/16/19 09:32 Not Reportable 03/16/19 09:32 Few 03/16/19 09:32 Few 03/16/19 09:32 Not Reportable 03/16/19 09:32 Not Reportable 03/16/19 09:32 Not Reportable 03/16/19 09:32 Not Reportable 03/16/19 09:32 Not Reportable 03/16/19 09:32 Not Reportable 03/16/19 09:32 Not Reportable 03/16/19 09:32 Few 03/16/19 09:32 Not Reportable 03/16/19 09:32 Not Reportable 03/16/19 09:32 Not Reportable 03/16/19 09:32 Not Reportable 03/16/19 09:32 Not Reportable 03/16/19 09:32 Not Reportable 03/16/19 09:32 Not Reportable 03/16/19 09:32 Acanthocytes (Spur) Not Reportable 03/16/19 09:32 Rouleaux Not Reportable 03/16/19 09:32 Not Reportable 03/16/19 09:32 Not Reportable 03/16/19 09:32 Not Reportable 03/16/19 09:32 Not Reportable 03/16/19 09:32 Hem Pathologist Commnt No 03/16/19 09:32 Sodium 135 mmol/L (137-145) L 03/17/19 Unknown Potassium 3.6 mmol/L (3.6-5.0) 03/17/19 Unknown Chloride 97.1 mmol/L (98-107) L 03/17/19 Unknown Carbon Dioxide 24 mmol/L (22-30) 03/17/19 Unknown 18 mmol/L 03/17/19 Unknown BUN 4 mg/dL (7-17) L 03/17/19 Unknown 0.6 mg/dL (0.7-1.2) L 03/17/19 Unknown Estimated GFR > 60 ml/min 03/17/19 Unknown 7 % 03/17/19 Unknown Glucose 104 mg/dL (65-100) H 03/17/19 Unknown Calcium 7.8 mg/dL (8.4-10.2) L 03/17/19 Unknown 0.30 mg/dL (0.1-1.2) 03/16/19 09:32 AST 17 units/L (5-40) 03/16/19 09:32 ALT 12 units/L (7-56) 03/16/19 09:32 120 units/L (35-129) 03/16/19 09:32 5.8 g/dL (6.3-8.2) L 03/16/19 09:32 2.2 g/dL (3.9-5) L 03/16/19 09:32 0.6 % 03/16/19 09:32 Yellow (Yellow) 03/14/19 18:40 Slightly-cloudy (Clear) 03/14/19 18:40 6.0 (5.0-7.0) 03/14/19 18:40 Ur Specific [place] 1.008 (1.003-1.030) 03/14/19 18:40 30 mg/dl mg/dL (Negative) 03/14/19 18:40 Neg mg/dL (Negative) 03/14/19 18:40 Neg mg/dL (Negative) 03/14/19 18:40 Sm (Negative) 03/14/19 18:40 Neg (Negative) 03/14/19 18:40 Neg (Negative) 03/14/19 18:40 < 2.0 mg/dL (<2.0) 03/14/19 18:40 Ur Leukocyte Esterase Lg (Negative) 03/14/19 18:40 24.0 /HPF (0.0-6.0) H 03/14/19 18:40 28.0 /HPF (0.0-6.0) 03/14/19 18:40 U Epithel Cells (Auto) 3.0 /HPF (0-13.0) 03/14/19 18:40 1+ /HPF (Negative) 03/14/19 18:40 1+ /HPF 03/14/19 18:40 Vancomycin Trough 4.0 ug/mL (5.0-20.0) L 03/16/19 15:01 Presumptive negative 03/14/19 18:40 Presumptive negative 03/14/19 18:40 Ur Barbiturates Screen Presumptive negative 03/14/19 18:40 Ur Phencyclidine Scrn Presumptive negative 03/14/19 18:40 Ur Amphetamines Screen Presumptive positive 03/14/19 18:40 U Benzodiazepines Scrn Presumptive negative 03/14/19 18:40 Presumptive negative 03/14/19 18:40 U Marijuana (THC) Screen Presumptive negative 03/14/19 18:40 Disclamer 03/14/19 18:40 RPR Nonreactive (Nonreactive) 03/14/19 16:16 HIV 1&2 Antibody Rapid Non react (Non React) 03/14/19 16:16 Non react (Non React) 03/14/19 16:16 Influenza A (Rapid) Negative (Negative) 03/14/19 10:10 Influenza B (Rapid) Negative (Negative) 03/14/19 10:10 Blood Type A POSITIVE 03/14/19 16:16 Antibody Screen Negative 03/14/19 16:16 Active Medications - Current Medications Current Medications: Generic Name Dose Route Start Last Admin Trade Name Freq PRN Reason Stop Dose Admin Acetaminophen 650 mg 03/14/19 14:37 03/17/19 12:13 Tylenol PO 650 mg Q4H PRN Administration Pain MILD(1-3)/Fever >100.5/QUEEN Docusate Sodium 100 mg 03/14/19 14:37 Colace PO Q12H PRN Constipation Famotidine 20 mg 03/15/19 22:00 03/17/19 09:59 Pepcid PO 20 mg BID ИРИНА Administration Hydromorphone HCl 0.5 mg 03/15/19 21:49 03/17/19 12:14 Dilaudid IV 0.5 mg Q3H PRN Administration Pain , Severe (7-10) Sodium Chloride 1,000 mls @ 75 mls/hr 03/15/19 22:00 03/16/19 20:41 Nacl 0.9% 1000 Ml IV 75 mls/hr DIRECT ИРИНА Administration Vancomycin HCl 1,500 mg/ 530 mls @ 333.333 mls/hr 03/17/19 12:00 03/17/19 12:15 Sodium Chloride IV 333.333 mls/hr Q8HR@0400,1200,2000 ИРИНА Administration Multivitamins/Iron/Calcium 1 each 03/15/19 10:00 03/17/19 09:59 Vitamin PO 1 each QDAY ИРИНА Administration Ondansetron HCl 4 mg 03/14/19 14:37 Zofran IV Q6H PRN Nausea And Vomiting Oxycodone HCl 20 mg 03/15/19 10:00 03/17/19 09:59 Roxicodone PO 20 mg Q6H PRN Administration Pain, Moderate (4-6) Sodium Chloride 10 ml 03/15/19 22:00 03/17/19 10:04 Sodium Chloride Flush Syringe 10 Ml IV 10 ml BID ИРИНА Administration Sodium Chloride 10 ml 03/15/19 21:49 Sodium Chloride Flush Syringe 10 Ml IV PRN PRN LINE FLUSH
[2019-03-17] MEDS: NACL 0.9% 1000 ML 1,000 ML IV SCH (16:00)
--- NOTE | 2019-03-17 18:01 | Discharge Summary ---
Providers - Providers Date of Admission: 03/14/19 16:42 Date of discharge: 03/17/19 Attending physician: AKHIL FELDMAN 03/14/19 14:37 Consult to Physician [CONS] Urgent Comment: Consulting Provider: CYNTHIA HOWARD Physician Instructions: Reason For Exam: 20 wks , fever, skin lesions 03/15/19 11:00 Consult to Physician [CONS] Routine Comment: Consulting Provider: LORETA MERA Physician Instructions: Reason For Exam: diffuse pain, fever, 20 wks preg, hep c, drug use Primary care physician: BHUMIKA DELGADILLO MD Hospitalization Reason for admission: other (fever, chills, skin lesions, back pain, 21 weeks ) Hospital course: Pt is a 28 year old female JILLIAN 07/26/19 at 20w6d who presents from the office with body aches, subjective fever, and ulcerated lesions on arms and legs. She denies obstetric complaints. She reports being in her usual state of health until about 1 week ago when she began to feel ill with acceleration of her symptoms over the last three days. She was recently treated for a UTI. She has had care at [facility] since 11 wks complicated by hepatitis C, genital herpes, trichomonas (with pt non-compliance with medication), illicit drug abuse evidenced by positive drug screen, chronic opioid use secondary to chronic back pain, tobacco use and GBS positive status. Patient was admitted and consulted with ID. ID assesment include: SIRS v/s sepsis: present on admission with fever, tachycardia, bandemia. Unclear etiology ? concern of pustules and bacteremia ? Staph infection +/- UTI. Multiple skin nodules ? pustules ? scratching v/s emboli phenomena UTI: UA wbc 24, large LE. Drug/tobacco abuse:UDS + amphetamines HCV Multiple drug allergies Patient was started on vancomycin for skin infection aztreonam for UTI f/u blood cultures and urine culture renal US if bacteremia obtain echo r/o endocarditi Blood cultures 03/14/2019 : MRSA 3 out of 4 bottles Urine culture 03/14/2019: Beta hemolytic strep Group B MRSA culture 03/14/19: in progress Blood cultures 03/16/19: GPC, 1 out of 4 bottles At this point it was recommended that she have 4-6 weeks in house for antibiotics. Awaiting MRI of spine and thoracic and echo. At this time this patient complex presentation alarmed concerned and for the best interest of the patient she was transferred to [place]. Patient currently in stable condition Disposition: DC-30 STILL A PATIENT Plan - Provider Discharge Summary Activity: routine, no sex for 6 weeks, no strenuous exercise Diet: routine Instructions: routine Additional instructions: [] Smoking cessation referral if applicable(refer to patient education folder for contact #) [] Refer to [facility]'s [facility] Booklet Call your doctor immediately for: * Fever > 100.5 * Heavy vaginal bleeding ( >1 pad per hour) * Severe persistent headache * Shortness of breath * Reddened, hot, painful area to leg or breast * Drainage or odor from incision. * Keep incision clean and dry at all times and follow doctor's instructions regarding bathing/showering - Follow up plan Follow up: BHUMIKA DELGADILLO MD [Primary Care Provider] - 7 Days
[2019-03-17 18:15] VITALS: BP 102/49
== END 2019-03-17 19:40 | disposition home or self-care (01) | DRG 781 ==
LOC: TRG 13:47 → LD 16:42 → 3A 03-15 11:35
PROVIDERS: ADMIT Obstetrics & Gynecology; ATTEND Obstetrics & Gynecology
DX: O98.812 Other maternal infectious and parasitic diseases complicating pregnancy, second trimester (principal); N39.0 Urinary tract infection, site not specified; E87.1 Hypo-osmolality and hyponatremia; O98.412 Viral hepatitis complicating pregnancy, second trimester; B19.20 Unspecified viral hepatitis C without hepatic coma; O98.312 Other infections with a predominantly sexual mode of transmission complicating pregnancy, second trimester; A60.00 Herpesviral infection of urogenital system, unspecified; O99.322 Drug use complicating pregnancy, second trimester; F11.90 Opioid use, unspecified, uncomplicated; O99.332 Smoking (tobacco) complicating pregnancy, second trimester; F17.200 Nicotine dependence, unspecified, uncomplicated; O99.820 Streptococcus B carrier state complicating pregnancy; O99.89 Other specified diseases and conditions complicating pregnancy, childbirth and the puerperium; G89.29 Other chronic pain; M54.9 Dorsalgia, unspecified; L08.89 Other specified local infections of the skin and subcutaneous tissue; A41.01 Sepsis due to Methicillin susceptible Staphylococcus aureus; O99.282 Endocrine, nutritional and metabolic diseases complicating pregnancy, second trimester; F15.10 Other stimulant abuse, uncomplicated; Z3A.21 21 weeks gestation of pregnancy; Z91.14 Patient's other noncompliance with medication regimen; Z82.49 Family history of ischemic heart disease and other diseases of the circulatory system; Z88.0 Allergy status to penicillin; Z88.1 Allergy status to other antibiotic agents; Z79.899 Other long term (current) drug therapy
CPT/HCPCS: 36415; 76770; 80048; 80053; 80202; 80307; 81001; 85007; 85025; 85027; 86592; 86850; 86900; 86901; 87040; 87076; 87086; 87116; 87186; 87400; 87806; 99406; G0378; J1170; J3370; J7030; J7040; J7120

== ENCOUNTER 2019-07-23 10:57 | Inpatient (IN) | payer OTHER ==
[2019-07-23] MEDS ORDERED: OXYTOCIN 20 UNIT/1000ML DRIP 20,000 MILLIUNITS/1,000 ML BAG IV ONE (11:31)
[2019-07-23] MEDS ORDERED: LACTATED RINGERS 1,000 ML ONE (11:31)
[2019-07-23] MEDS ORDERED: LIDOCAINE (2%) 20 MG/1 ML VIAL 20 ML MDV INFILTRATI ONE ×2 (11:31→16:14)
[2019-07-23] MEDS ORDERED: BUTORPHANOL 2 MG/1 ML INJ IV PRN (11:51)
[2019-07-23] MEDS ORDERED: AMPICILLIN/NS 2 GM/100 ML 2 GM/100 ML BAG IV ONE (12:00)
[2019-07-23] MEDS ORDERED: LACTATED RINGERS 1,000 ML IV SCH (12:00)
[2019-07-23 12:10] LABS: Hematocrit 27.9 % (30.3-42.9); Hemoglobin 9.6 gm/dl (10.1-14.3); Mean Corpuscular HGB Conc 35 % (30-34); Mean Corpuscular Volume 84 fl (79-97); Platelet Count 254 K/mm3 (140-440); Red Blood Count 3.32 M/mm3 (3.65-5.03); Red Cell Distribution Width 14.5 % (13.2-15.2)
--- NOTE | 2019-07-23 12:55 | Procedure Note ---
OB Delivery Note - Delivery Date of Delivery: 07/23/19 Cafe Server: ESME JOHNSON (called to room by [facility] Nurse) Estimated blood loss: 500cc - Vaginal Delivery presentation: vertex Delivery position: OA Delivery induction: none Delivery monitor: external FHT, external uterine Route of delivery: Delivery placenta: spontaneous Delivery cord: 3 umbilical vessels Episiotomy: none Delivery laceration: none Anesthesia: none Delivery comments: precipitous delivery of a live born male over intact perineum Cord blood obtained MIQUEL team present. Placenta and membrane delivered complete and intact, 3 vessel cord. Pit IVFs .EBL 500, Wgt and not available @ time of note. Baby taken to NICU for transition. Mom remains LDR stable. made aware of delivery given report. She asks that I write delivery note. - Infant A Infant Gender: Male
--- NOTE | 2019-07-23 13:00 | History and Physical Report ---
History of Present Illness Date of examination: 07/23/19 Date of admission: 07/23/19 11:20 Chief complaint: I'm in labor History of present illness: Patient is a 29 year old [id number] who presents in active labor at 38.5 weeks with EDC 07/26/19. Pt was seen at [facility] earlier in but has not been there in the last couple of months. Her course was complicated by MRSA sepsis at 21 weeks gestation for which she ultimately required Inpatient IV therapy at [place]. Per the patient, she was released in April. She has a history of Hepatitis C, Herpes and Trichomonas. 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 She has not had GBS testing and it is therefore unknown. 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 History: hepatitis C, herpes, trichomonas Family/Genetic History: none Social history: single - Obstetrical History Expected Date of Delivery: 07/26/19 Actual Gestation: 39 Week(s) 4 Day(s) : 7 Para: 4 Number of Living Children: 3 Medications and Allergies Allergies Allergy/AdvReac Type Severity Reaction Status Date / Time ciprofloxacin [From Cipro] Allergy Anaphylaxis Verified 07/23/19 11:28 doxycycline AdvReac Vomiting Verified 07/10/14 11:45 ketorolac tromethamine AdvReac Vomiting Verified 07/10/14 11:45 [From Toradol] tramadol AdvReac Vomiting Verified 07/10/14 11:45 Home Medications Medication Instructions Recorded Confirmed Last Taken Type Acetaminophen/Codeine 1 tab PO Q6H PRN #15 tab 07/10/14 Unknown Rx [Acetaminophen-Codeine #3 TAB] Clindamycin [Clindamycin CAP] 300 mg PO Q8H #30 cap 07/10/14 Unknown Rx Ferrous Sulfate 325 mg PO BID #60 tablet. 05/26/18 Unknown Rx Ibuprofen [Motrin] 600 mg PO Q8H PRN #30 tablet 05/26/18 Unknown Rx oxyCODONE /ACETAMINOPHEN [Percocet 1 tab PO Q6HR PRN #30 tablet 05/26/18 Unknown Rx 5/325] Nitrofurantoin Campbell/M-Cryst 100 mg PO BID #14 capsule 03/11/19 Unknown Rx [Macrobid CAP] Active Meds: Active Medications Butorphanol Tartrate (Stadol) 2 mg IV Q2H PRN PRN Reason: Labor Pain Ampicillin Sodium (Ampicillin/Ns 2 Gm/100 Ml) 2 gm in 100 mls @ 100 mls/hr IV ONCE ONE; Protocol Stop: 07/23/19 12:59 Last Admin: 07/23/19 12:13 Dose: 100 mls/hr Documented by: Lactated Ringer's (Lactated Ringers) 1,000 mls @ 125 mls/hr IV DIRECT ИРИНА Ampicillin Sodium (Ampicillin/Ns 1 Gm/50 Ml) 1 gm in 50 mls @ 100 mls/hr IV Q4H ИРИНА Review of Systems All systems: negative Constitutional: malaise, lethargy Eyes: deferred Ears, nose, mouth and throat: deferred Genitourinary: leakage of fluid, pelvic pain, contractions - Physical Exam Breasts: Cardiovascular: Regular rate, Normal S1, Normal S2 Lungs: Positive: Clear to auscultation, Normal air movement Abdomen: Positive: normal appearance, soft, normal bowel sounds. Negative: distention, tenderness Genitourinary (Female): Positive: normal external genitalia, normal perenium Vulva: both: normal Vagina: Positive: normal moisture. Negative: discharge Cervix: Negative: lesion, discharge Uterus: Positive: normal size, normal contour Adnexa: both: normal Anus/Rectum: Positive: normal perianal skin, heme negative. Negative: rectal mass, hemorrhoids Extremities: Positive: normal Deep Tendon Reflex Grade: Normal +2 - Obstetrical FHR: auscultation normal Uterine Contraction Monitor Mode: External Cervical Dilatation: 7 Cervical Effacement Percentage: 80 Uterine Contraction Pattern: Regular Uterine Tone Measurement Phase: Contraction Uterine Contraction Intensity: Strong/Firm Results Result Diagrams: 07/23/19 11:40 Abnormal lab results 07/23/19 Range/Units 11:40 RBC 3.32 L (3.65-5.03) M/mm3 Hgb 9.6 L (10.1-14.3) gm/dl Hct 27.9 L (30.3-42.9) % MCHC 35 H (30-34) % All other labs normal. Assessment and Plan IUP at 39.4 who presents in active labor with minimal care and a history of MRSA. Admit for labor. Treat for GBS prophylaxis. Draw panel. Order UDS. Anticipate
[2019-07-23 14:51] LABS: Bilirubin,Urine SM (Negative); Blood,Urine NEG (Negative); Color,Urine Amber (Yellow); Mucus,Urine FEW /HPF; Urobilinogen,Urine < 2.0 mg/dL (<2.0)
[2019-07-23 14:55] LABS: Ictotest,Urine Negative (Negative)
[2019-07-23] MEDS ORDERED: ACETAMINOPHEN 325 MG TAB PO PRN (15:28)
[2019-07-23] MEDS ORDERED: BISACODYL 10 MG RECT SUPP PR PRN (15:28)
[2019-07-23] MEDS ORDERED: diphenhydrAMINE 25 MG CAP PO PRN (15:28)
[2019-07-23] MEDS ORDERED: LANOLIN/ZINC/DIMETHICONE (LANSINOH) 7 GM TP PRN (15:28)
[2019-07-23] MEDS ORDERED: ONDANSETRON 4 MG/2 ML INJ IV PRN (15:28)
[2019-07-23] MEDS ORDERED: PROMETHAZINE 25 MG TAB PO PRN (15:28)
[2019-07-23] MEDS ORDERED: WITCH HAZEL/ GLYCERIN PAD TP PRN (15:28)
[2019-07-23] MEDS ORDERED: AMPICILLIN 1 GM in SODIUM CHLORIDE 0.9% 50 ML IV SCH (16:00)
[2019-07-23] MEDS ORDERED: AMPICILLIN/NS 1 GM/50 ML 1 GM/50 ML BAG IV SCH (16:00)
[2019-07-23 16:03] LABS: Hepatitis C Virus Antibody Reactive (NonReactive)
[2019-07-23] MEDS: IBUPROFEN 600 MG TAB PO SCH ×2 (16:48→21:34)
[2019-07-23] MEDS: DOCUSATE SODIUM 100 MG CAP PO SCH (21:33)
[2019-07-23] MEDS ORDERED: MAGNESIUM HYDROXIDE (MOM) ORAL LIQD UDC PO PRN (22:00)
[2019-07-24 01:23] LABS: Cocaine Screen,Urine PRESUMPTIVE NEGATIVE; Methadone Screen,Urine PRESUMPTIVE NEGATIVE; Opiate Screen,Urine PRESUMPTIVE NEGATIVE
[2019-07-24] MEDS ORDERED: KETOROLAC 30 MG/1 ML INJ IV PRN (01:40)
[2019-07-24 02:48] LABS: Amphetamine Screen,Urine PRESUMPTIVE POSITIVE; Benzodiazepines Screen,Urine PRESUMPTIVE POSITIVE; Cannabinoid Screen,Urine PRESUMPTIVE POSITIVE
[2019-07-24] MEDS ORDERED: TETANUS,DIPH,PERTUSS(ACELL) VACCINE 0.5 ML SYRINGE IM ONE (06:00)
[2019-07-24] MEDS: IBUPROFEN 600 MG TAB PO SCH (09:02)
[2019-07-24] MEDS ORDERED: MEASLES, MUMPS & RUBELLA 12,500 UNIT/0.5 ML VACCINE SUB-Q ONE (10:00)
[2019-07-24] MEDS ORDERED: PRENATAL VIT27-FE FUMARATE-FOLIC ACID VIT TAB PO SCH (10:00)
[2019-07-24] MEDS ORDERED: HYDROcodone/ACETAMINOPHEN 5-325 MG TAB PO ONE (10:27)
[2019-07-24] MEDS: DOCUSATE SODIUM 100 MG CAP PO SCH (10:46)
[2019-07-24 13:34] VITALS: BP 138/49
--- NOTE | 2019-07-24 13:41 | Progress Note ---
Assessment and Plan Urgently discharged. Follow up in [address] Simnoe Swartz Subjective - Subjective Date of service: 07/24/19 Interval history: Received call from staff that patient was requesting discharge secondary to needing transfer to [facility]. was positive for Benzos, Meth and Marijuana Patient reports: appetite normal, voiding normally, ambulating normally : in NICU Objective - Vital Signs Latest vital signs: Vital Signs Temp Pulse Resp BP BP Pulse Ox 07/24/19 13:25 98.3 F 53 L 18 138/49 97 07/24/19 08:35 97.7 F 51 L 18 122/69 99 07/24/19 03:41 18 07/24/19 03:11 18 07/24/19 00:24 97.7 F 61 20 112/78 97 07/23/19 22:34 18 07/23/19 21:34 18 07/23/19 21:05 98.0 F 72 18 129/80 98 07/23/19 15:00 97.8 F 66 20 127/80 96 07/23/19 13:56 74 135/72 07/23/19 13:41 55 L 140/75 Intake and Output 07/23/19 07/24/19 07/24/19 22:59 06:59 14:59 Intake Total 360 Balance 360 Intake: Intake, Free Water 360 Other: # Voids Void 2 - Labs Labs: Abnormal lab results 07/23/19 07/23/19 Range/Units 11:40 14:02 Ur Specific [place] 1.032 H (1.003-1.030) Hepatitis C Antibody Reactive A (NonReactive)
--- NOTE | 2019-07-24 13:42 | Discharge Summary ---
Providers - Providers Date of Admission: 07/23/19 11:20 Date of discharge: 07/24/19 Attending physician: ARIANNE GORDON 07/24/19 08:00 Consult to Case Management [CONS] Routine Services Needed at Discharge: Network Security Analyst Notified:: Will notify MD in am. Additional Physician Instructions: Positive Urine drug screen. Primary care physician: DIGITAL ADVERTISING SPECIALIST Hospitalization Reason for admission: active labor Delivery: Episiotomy: none Laceration: none Discharge diagnosis: IUP at term delivered baby: female Condition at discharge: Good Disposition: DC-01 TO HOME OR SELFCARE Plan - Provider Discharge Summary Activity: routine, no sex for 6 weeks, no heavy lifting 4 weeks, no strenuous exercise Diet: routine Instructions: routine Additional instructions: [] Smoking cessation referral if applicable(refer to patient education folder for contact #) [] Refer to [facility] Booklet Call your doctor immediately for: * Fever > 100.5 * Heavy vaginal bleeding ( >1 pad per hour) * Severe persistent headache * Shortness of breath * Reddened, hot, painful area to leg or breast * Drainage or odor from incision. * Keep incision clean and dry at all times and follow doctor's instructions rega rding bathing/showering - Follow up plan Follow up: PRIMARY CARE, [Primary Care Provider] - 7 Days Forms: [facility] Discharge Summary
[2019-07-27 06:38] LABS: HIV-1 Antibody Differentiation SEE SCANNED RESULT; HIV-2 Antibody Differentiation SEE SCANNED RESULT
== END 2019-07-24 15:00 | disposition home or self-care (01) | DRG 806 ==
LOC: TRG 10:57 → LD 11:20 → OB 15:13
PROVIDERS: ADMIT Obstetrics & Gynecology; ATTEND Obstetrics & Gynecology
PROC: 10E0XZZ Delivery of Products of Conception, External Approach (ICD-10-PCS; principal; 2019-07-23)
DX: O62.3 Precipitate labor (principal); O99.324 Drug use complicating childbirth; Z37.0 Single live birth; Z3A.39 39 weeks gestation of pregnancy; Z88.1 Allergy status to other antibiotic agents; Z88.8 Allergy status to other drugs, medicaments and biological substances; Z88.5 Allergy status to narcotic agent; F15.10 Other stimulant abuse, uncomplicated
CPT/HCPCS: 36415; 80307; 81001; 85027; 86592; 86689; 86706; 86762; 86803; 86850; 86900; 86901; 87806; 88307; 96360; 96361; G0378; J0290; J0595; J1885; J2590; J7120